=== PATIENT | male | born 1940 | race Caucasian/White ===

== ENCOUNTER 2017-03-26 18:43 | Observation (INO) ==
[2017-03-26 19:30] LABS: Basophils # 0.2 K/mcL (0.0-0.2); Basophils % 1.6 %; Eosinophils # 0.1 K/mcL (0.0-0.6); Eosinophils % 1.1 %; Hematocrit 49.7 % (37.5-50.1); Hemoglobin 16.4 g/dL (12.9-16.9); Immature Granulocytes % 2.7 % (0-4); Lymphocytes # 0.6 K/mcL (0.6-4.6); Mean Corpuscular Hemoglobin 30.4 pg (28.0-33.3); Mean Platelet Volume 9.4 fL (9.4-12.4); Monocytes # 0.3 K/mcL (0.0-1.3); Monocytes % 3.3 %; Neutrophils # 8.7 K/mcL (1.6-8.9); Platelet Count 172 K/mcL (140-400); Red Cell Distribution Width 14.6 % (11.5-14.5); Segmented Neutrophils % 85.3 %
--- NOTE | 2017-03-26 19:30 | Emergency Department Note ---
Disposition Clinical Impression: Tremors of nervous system, Transient neurologic deficit Altered mental status Qualifiers: Altered mental status type: disorientation Qualified Code(s): R41.0 - Disorientation, unspecified Disposition: Admitted As Inpatient Condition: Good Referrals: Unassigned,Provider [Non-Partnered Physician] - Forms: ED Satisfaction Letter Time of Disposition: 21:18 Altered Mental Status HPI - General Chief Complaint: ED Altered Mental Status Stated Complaint: Weakness ,AMS Time Seen by Provider: 03/26/17 18:45 Source: patient, EMS Mode of arrival: ambulatory Limitations: no limitations Nursing Notes Reviewed: Yes Vital Signs Reviewed: Yes - History of Present Illness HPI Narrative: Patient presents emergency room from home. EMS transportation completed. In transit they noted the patient was altered on arrival and shaking. They try to get an Accu-Chek and it read as air. They provided him with 2 A of glucose by mouth. Family denies any recent illnesses or injuries. Denies any other medical concerns. According to them he takes Cardizem, metoprolol, Synthroid. No other medications noted from the who is with them at time of arrival. Patient currently denying chest pain shortness of breath headache vision changes nausea vomiting or diarrhea. Denies fevers or chills. 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 Constitutional: Denies: fever, chills Cardiovascular: Denies: chest pain, palpitations, dyspnea on exertion, orthopnea Respiratory: Denies: cough, dyspnea Gastrointestinal: Denies: nausea, vomiting, diarrhea Genitourinary: Denies: urgency, dysuria, frequency Neurological: Denies: headache Past Medical History - Past Medical History Attestation: Yes The following information was validated with the patient. Source: patient Medical history: Reports: diabetes, hypertension, thyroid disease Psychiatric history: Reports: no psych history - Social History Smoking Status: Former smoker Alcohol use: Reports: none Drug use: Reports: none Physical Exam - General Limitations: no limitations General appearance: alert, in no apparent distress - Head Head exam: atraumatic, normocephalic, normal inspection - Eye Eye exam: Present: normal appearance, PERRL, EOMI. Absent: conjunctival injection, miosis, mydriasis - ENT ENT exam: normal exam, normal oropharynx, mucous membranes moist, TM's normal bilaterally - Neck Neck exam: Present: normal inspection, full ROM, trachea midline. Absent: tenderness, meningismus, lymphadenopathy - Chest Chest inspection: Present: normal inspection, symmetric chest wall rise. Absent : tenderness - Respiratory Respiratory exam: Present: normal lung sounds bilaterally. Absent: respiratory distress, wheezes, stridor, accessory muscle use - Cardiovascular Cardiovascular exam: Present: regular rate, normal rhythm, normal heart sounds - Abdominal Exam Abdominal exam: Present: soft, Non-Tender, normal bowel sounds. Absent: tenderness, distention, guarding, rebound, rigidity, Foss's sign, Rovsing's sign, tenderness at McBurney's Point - Extremities Exam Extremities exam: Present: normal inspection, full ROM, normal capillary refill. Absent: tenderness, pedal edema - Back Exam Back exam: Present: normal inspection - Neurological Exam Neurological exam: Present: alert, oriented X3, CN II-XII intact, normal gait - Skin Skin exam: Present: warm, dry, intact, normal color Course Course Narrative: Patient seen and examined arrival. See history of present illness. 76-year- old male presents emergency room from home today. Patient arrived by EMS today for evaluation of tremors and altered mental status at home per the . Patient has underlying tremor disorder. He is a diabetic with high blood pressure and thyroid related issues. Patient presents here today by EMS with stable vital signs. In-transit they attempted to get Accu-Chek read as air. They provided him with 2 A of oral dextrose at that time. On arrival here his Accu-Chek was 298. His vital signs are stable patient is afebrile. Patient is alert and oriented answering questions appropriately. He does not know why he is here. He is in no apparent distress. Lungs are clear heart is regular abdomen is soft nontender nondistended no guarding no rigidity. His lower extremities appear to be stable with mild pitting edema but otherwise no other acute pathology. Patient moves all 4 extremities with purpose has a tremor with intention. Otherwise no acute issues at this time. EKG reviewed and compared to previous EKG. No acute signs of ST segment elevation. Chronic morphology changes including a right bundle branch block. no acute signs of st segment elevation. vss. afebrile. Patient's family is at the bedside in the 70s are chronic issues. He has baseline tremors. Otherwise the daughter who is coming now discloses that he is a type II diabetic insulin-dependent. And has high blood pressure and thyroid related issues. The talar other medications that he takes. Patient is comfortable resting in the bed at this time mentating appropriately has intention tremor on exam. Disposition pending evaluation for possible diabetic-related issue dehydration cardiac related issue altered mental status and CT scan of the head ordered. Patient is stable we will continue to monitor treatment course is completed. Chest x-ray CT of the head EKG labs troponin blood cultures urinalysis beta hydroxybutyric acid and VBG all ordered at this time a fluid bolus. - Reevaluation(s) Reevaluation #1: Repeat evaluation the patient the bedside shows negative CT scan of the head chest x-ray is normal. EKG is stable. Labs are all within normal limits for this patient. Mildly elevated ketones in the blood but otherwise no acute signs of DKA. Glucose is elevated. Patient otherwise has no acute pathology. During the second evaluation at the bedside patient started to have some dysarthria and speech. Patient responded and resolved within 30 seconds of the initial episode. Family was concerned because he has never had any like this before. Based on story and symptoms patient is concerning for possible transient events going on here today as well as unknown underlying neurologic issues. Patient is stable at this point back to baseline answering questions appropriately alert and oriented 3. He will be admitted to the hospital at this time for definitive management of what appears to be unknown etiology of transient events along with progression of tremors Time: 21:16 Reevaluation #2: dR. Sánchez accepted the patient. Urinalysis is still pending secondary to patient not really was an appropriate sample this time. Otherwise patient has no other acute pathology. Glucose is elevated and he has a mild bump in his creatinine. Patient provided with fluids here. I reviewed the imaging labs and workup in detail with the hospitalist. No other recommendations from them at this time. Patient will be admitted for definitive evaluation of transient cerebral events that appeared to be waxing and waning here in the emergency room. Patient stable and in good medical condition at the time of admission patient will be observed here in the emergency room and to the admission process is completed Time: 21:27 Vital Signs Temperature 98.2 F 03/26/17 18:44 Pulse Rate 103 03/26/17 18:44 Respiratory Rate 20 03/26/17 18:44 Blood Pressure 140/94 03/26/17 18:44 O2 Sat by Pulse Oximetry 96 03/26/17 18:44 Temperature 98.2 F 03/26/17 18:44 Pulse Rate 103 03/26/17 18:44 Respiratory Rate 20 03/26/17 18:44 Blood Pressure 140/94 03/26/17 18:44 O2 Sat by Pulse Oximetry 96 03/26/17 18:44 Oxygen Delivery Oxygen Delivery Room Air Altered Mental Status - MDM Narrative Medical decision making narrative: n/v, transient events here neurologic evaluation - Medical Records Medical records reviewed: Yes I reviewed the patient's medical records. - Lab Data Lab results reviewed: Yes I reviewed the patient's lab results. Result diagrams: 03/26/17 19:15 03/26/17 19:15 Lab Results 03/26/17 03/26/17 03/26/17 Range/Units 19:15 19:15 19:15 WBC 10.2 (4.3-11.1) K/mcL RBC 5.40 (4.19-5.50) M/mcL Hgb 16.4 (12.9-16.9) g/dL Hct 49.7 (37.5-50.1) % MCV 92.0 (83.0-100.0) fL MCH 30.4 (28.0-33.3) pg MCHC 33.0 (31.6-35.5) g/dL RDW 14.6 H (11.5-14.5) % Plt Count 172 (140-400) K/mcL MPV 9.4 (9.4-12.4) fL Immature Gran % 2.7 (0-4) % Seg Neutrophils % 85.3 % Lymphocytes % 6.0 % Monocytes % 3.3 % Eosinophils % 1.1 % Basophils % 1.6 % Neutrophils # 8.7 (1.6-8.9) K/mcL Lymphocytes # 0.6 (0.6-4.6) K/mcL Monocytes # 0.3 (0.0-1.3) K/mcL Eosinophils # 0.1 (0.0-0.6) K/mcL Basophils # 0.2 (0.0-0.2) K/mcL PT 11.9 (9.4-12.1) Seconds INR 1.1 APTT 29.0 (26.0-36.0) Seconds VBG pH (7.32-7.42) pH Units VBG pCO2 (41-51) mmHg VBG pO2 (25-40) mmHg VBG HCO3 (21-27) mEq/L Sodium 132 L (136-145) mEq/L Potassium 4.7 H (3.5-4.5) mEq/L Chloride 98 (98-109) mEq/L Carbon Dioxide 21 (19-29) mEq/L BUN 26 (8-26) mg/dL Creatinine 1.53 H (0.72-1.25) mg/dL Est GFR ( Amer) 54 L (> 60) Est GFR (Non-Af Amer) 44 L (> 60) BUN/Creatinine Ratio 17 (6-26) Glucose 294 H (70-99) mg/dL Calculated Osmolality 290 (280-300) Calcium 9.3 (8.6-10.8) mg/dL Total Bilirubin 1.6 H (0.2-1.2) mg/dL Direct Bilirubin 0.4 (0.0-0.5) mg/dL Indirect Bilirubin 1.2 (0.0-1.2) mg/dL AST 28 (5-34) Units/L ALT 18 (0-55) Units/L Alkaline Phosphatase 108 (38-126) Units/L Troponin I (0-0.03) ng/mL Serum Total Protein 8.1 (6.0-8.3) g/dL Albumin 3.8 (3.5-5.0) g/dL Globulin 4.3 H (2.4-3.5) g/dL Albumin/Globulin Ratio 0.9 L (1.1-2.2) Beta-Hydroxybutyric Acd (0.02-0.27) mmol/L TSH 1.853 (0.350-4.840) mcIU/mL 03/26/17 03/26/17 03/26/17 Range/Units 19:15 20:23 20:23 WBC (4.3-11.1) K/mcL RBC (4.19-5.50) M/mcL Hgb (12.9-16.9) g/dL Hct (37.5-50.1) % MCV (83.0-100.0) fL MCH (28.0-33.3) pg MCHC (31.6-35.5) g/dL RDW (11.5-14.5) % Plt Count (140-400) K/mcL MPV (9.4-12.4) fL Immature Gran % (0-4) % Seg Neutrophils % % Lymphocytes % % Monocytes % % Eosinophils % % Basophils % % Neutrophils # (1.6-8.9) K/mcL Lymphocytes # (0.6-4.6) K/mcL Monocytes # (0.0-1.3) K/mcL Eosinophils # (0.0-0.6) K/mcL Basophils # (0.0-0.2) K/mcL PT (9.4-12.1) Seconds INR APTT (26.0-36.0) Seconds VBG pH 7.36 (7.32-7.42) pH Units VBG pCO2 46 (41-51) mmHg VBG pO2 37 (25-40) mmHg VBG HCO3 26.0 (21-27) mEq/L Sodium (136-145) mEq/L Potassium (3.5-4.5) mEq/L Chloride (98-109) mEq/L Carbon Dioxide (19-29) mEq/L BUN (8-26) mg/dL Creatinine (0.72-1.25) mg/dL Est GFR ( Amer) (> 60) Est GFR (Non-Af Amer) (> 60) BUN/Creatinine Ratio (6-26) Glucose (70-99) mg/dL Calculated Osmolality (280-300) Calcium (8.6-10.8) mg/dL Total Bilirubin (0.2-1.2) mg/dL Direct Bilirubin (0.0-0.5) mg/dL Indirect Bilirubin (0.0-1.2) mg/dL AST (5-34) Units/L ALT (0-55) Units/L Alkaline Phosphatase (38-126) Units/L Troponin I 0.00 (0-0.03) ng/mL Serum Total Protein (6.0-8.3) g/dL Albumin (3.5-5.0) g/dL Globulin (2.4-3.5) g/dL Albumin/Globulin Ratio (1.1-2.2) Beta-Hydroxybutyric Acd 0.33 H (0.02-0.27) mmol/L TSH (0.350-4.840) mcIU/mL - Radiology Data Radiology results reviewed: Yes I reviewed the patient's radiology results. CT of the head is negative for acute intracranial pathology. Chest x-ray stable in no acute signs of infection - EKG Data EKG attestation: Yes I reviewed and interpreted this EKG. EKG shows normal: sinus rhythm, axis, intervals, QRS complexes, ST-T waves Rate: normal Rhythm: NSR [place]/QRS: RBBB ST segment depression in: v3, v4 When compared to previous EKG there are: no significant changes Interpretation: no acute changes, unchanged when compared to prior tracing (date ) (08/16/2004) TPA Checklist - LKW: 3-4.5 hrs Add. Contraindications Patient/family understanding: The patient/family members have been counseled and understood the risk, benefit , and alternatives of treatment. Critical Care Time Critical Care Time: Yes Total Critical Care Time: 35 Attestation: separate of procedures and medical intervention.
[2017-03-26 19:38] LABS: INR 1.1; Prothrombin Time 11.9 Seconds (9.4-12.1)
[2017-03-26] MEDS ORDERED: Ondansetron 4 MG/2 ML VIAL IVP ONE (19:40)
[2017-03-26 19:48] LABS: Albumin 3.8 g/dL (3.5-5.0); Albumin/Globulin Ratio 0.9 (1.1-2.2); Bilirubin,Indirect 1.2 mg/dL (0.0-1.2); Bilirubin,Total 1.6 mg/dL (0.2-1.2); Calcium 9.3 mg/dL (8.6-10.8); Globulin 4.3 g/dL (2.4-3.5); Total Protein 8.1 g/dL (6.0-8.3)
[2017-03-26 19:49] LABS: Bilirubin,Direct 0.4 mg/dL (0.0-0.5); Potassium 4.7 mEq/L (3.5-4.5)
[2017-03-26] MEDS ORDERED: 0.9 % Sodium Chloride 1,000 ML IVC ONE ×2 (19:55→22:37)
[2017-03-26 20:09] LABS: Thyroid Stimulating Hormone 1.853 mcIU/mL (0.350-4.840)
[2017-03-26 20:56] LABS: VBG PH 7.36 pH Units (7.32-7.42)
--- NOTE | 2017-03-26 21:20 | Emergency Department Note ---
Disposition Clinical Impression: Altered mental status, Tremors of nervous system, Transient neurologic deficit Disposition: Admitted As Inpatient Condition: Good Referrals: Unassigned,Provider [Non-Partnered Physician] - Forms: ED Satisfaction Letter General Adult HPI - General Chief complaint: ED Altered Mental Status Stated complaint: Weakness ,AMS Time Seen by Provider: 03/26/17 18:45 Source: patient, EMS Mode of arrival: ambulatory Limitations: no limitations Nursing Notes Reviewed: Yes Vital Signs Reviewed: Yes - History of Present Illness Pain Scale: 0 - Related Data Allergies Allergy/AdvReac Type Severity Reaction Status Date / Time No Known Allergies Allergy Verified 03/26/17 18:54 Constitutional: Denies: fever, chills Cardiovascular: Denies: chest pain, palpitations, dyspnea on exertion, orthopnea Respiratory: Denies: cough, dyspnea Gastrointestinal: Denies: nausea, vomiting, diarrhea Genitourinary: Denies: urgency, dysuria, frequency Neurological: Denies: headache Past Medical History - Past Medical History Medical history: Reports: diabetes, hypertension, thyroid disease Psychiatric history: Reports: no psych history - Social History Smoking Status: Former smoker Alcohol use: Reports: none Drug use: Reports: none Physical Exam - General Limitations: no limitations General appearance: alert, in no apparent distress Course Vital Signs Temperature 98.2 F 03/26/17 18:44 Pulse Rate 103 03/26/17 18:44 Respiratory Rate 20 03/26/17 18:44 Blood Pressure 140/94 03/26/17 18:44 O2 Sat by Pulse Oximetry 96 03/26/17 18:44 Temperature 98.2 F 03/26/17 18:44 Pulse Rate 103 03/26/17 18:44 Respiratory Rate 20 03/26/17 18:44 Blood Pressure 140/94 03/26/17 18:44 O2 Sat by Pulse Oximetry 96 03/26/17 18:44 Oxygen Delivery Oxygen Delivery Room Air Medical Decision Making - Lab Data Result diagrams: 03/26/17 19:15 03/26/17 19:15 Lab Results 03/26/17 03/26/17 03/26/17 Range/Units 19:15 19:15 19:15 WBC 10.2 (4.3-11.1) K/mcL RBC 5.40 (4.19-5.50) M/mcL Hgb 16.4 (12.9-16.9) g/dL Hct 49.7 (37.5-50.1) % MCV 92.0 (83.0-100.0) fL MCH 30.4 (28.0-33.3) pg MCHC 33.0 (31.6-35.5) g/dL RDW 14.6 H (11.5-14.5) % Plt Count 172 (140-400) K/mcL MPV 9.4 (9.4-12.4) fL Immature Gran % 2.7 (0-4) % Seg Neutrophils % 85.3 % Lymphocytes % 6.0 % Monocytes % 3.3 % Eosinophils % 1.1 % Basophils % 1.6 % Neutrophils # 8.7 (1.6-8.9) K/mcL Lymphocytes # 0.6 (0.6-4.6) K/mcL Monocytes # 0.3 (0.0-1.3) K/mcL Eosinophils # 0.1 (0.0-0.6) K/mcL Basophils # 0.2 (0.0-0.2) K/mcL PT 11.9 (9.4-12.1) Seconds INR 1.1 APTT 29.0 (26.0-36.0) Seconds VBG pH (7.32-7.42) pH Units VBG pCO2 (41-51) mmHg VBG pO2 (25-40) mmHg VBG HCO3 (21-27) mEq/L Sodium 132 L (136-145) mEq/L Potassium 4.7 H (3.5-4.5) mEq/L Chloride 98 (98-109) mEq/L Carbon Dioxide 21 (19-29) mEq/L BUN 26 (8-26) mg/dL Creatinine 1.53 H (0.72-1.25) mg/dL Est GFR ( Amer) 54 L (> 60) Est GFR (Non-Af Amer) 44 L (> 60) BUN/Creatinine Ratio 17 (6-26) Glucose 294 H (70-99) mg/dL Calculated Osmolality 290 (280-300) Calcium 9.3 (8.6-10.8) mg/dL Total Bilirubin 1.6 H (0.2-1.2) mg/dL Direct Bilirubin 0.4 (0.0-0.5) mg/dL Indirect Bilirubin 1.2 (0.0-1.2) mg/dL AST 28 (5-34) Units/L ALT 18 (0-55) Units/L Alkaline Phosphatase 108 (38-126) Units/L Troponin I (0-0.03) ng/mL Serum Total Protein 8.1 (6.0-8.3) g/dL Albumin 3.8 (3.5-5.0) g/dL Globulin 4.3 H (2.4-3.5) g/dL Albumin/Globulin Ratio 0.9 L (1.1-2.2) Beta-Hydroxybutyric Acd (0.02-0.27) mmol/L TSH 1.853 (0.350-4.840) mcIU/mL 03/26/17 03/26/17 03/26/17 Range/Units 19:15 20:23 20:23 WBC (4.3-11.1) K/mcL RBC (4.19-5.50) M/mcL Hgb (12.9-16.9) g/dL Hct (37.5-50.1) % MCV (83.0-100.0) fL MCH (28.0-33.3) pg MCHC (31.6-35.5) g/dL RDW (11.5-14.5) % Plt Count (140-400) K/mcL MPV (9.4-12.4) fL Immature Gran % (0-4) % Seg Neutrophils % % Lymphocytes % % Monocytes % % Eosinophils % % Basophils % % Neutrophils # (1.6-8.9) K/mcL Lymphocytes # (0.6-4.6) K/mcL Monocytes # (0.0-1.3) K/mcL Eosinophils # (0.0-0.6) K/mcL Basophils # (0.0-0.2) K/mcL PT (9.4-12.1) Seconds INR APTT (26.0-36.0) Seconds VBG pH 7.36 (7.32-7.42) pH Units VBG pCO2 46 (41-51) mmHg VBG pO2 37 (25-40) mmHg VBG HCO3 26.0 (21-27) mEq/L Sodium (136-145) mEq/L Potassium (3.5-4.5) mEq/L Chloride (98-109) mEq/L Carbon Dioxide (19-29) mEq/L BUN (8-26) mg/dL Creatinine (0.72-1.25) mg/dL Est GFR ( Amer) (> 60) Est GFR (Non-Af Amer) (> 60) BUN/Creatinine Ratio (6-26) Glucose (70-99) mg/dL Calculated Osmolality (280-300) Calcium (8.6-10.8) mg/dL Total Bilirubin (0.2-1.2) mg/dL Direct Bilirubin (0.0-0.5) mg/dL Indirect Bilirubin (0.0-1.2) mg/dL AST (5-34) Units/L ALT (0-55) Units/L Alkaline Phosphatase (38-126) Units/L Troponin I 0.00 (0-0.03) ng/mL Serum Total Protein (6.0-8.3) g/dL Albumin (3.5-5.0) g/dL Globulin (2.4-3.5) g/dL Albumin/Globulin Ratio (1.1-2.2) Beta-Hydroxybutyric Acd 0.33 H (0.02-0.27) mmol/L TSH (0.350-4.840) mcIU/mL Attestation Statement - Attestation Attestation: I examined this patient and my medical decision-making was reviewed with the WOOD TANK BUILDER/PA/Advanced Practice Nurse/Resident Physician. I agree with the documented findings, disposition and treatment plan as described except to the extent set forth below. Patient is a 76-year-old white male brought in by EMS today for reports of confusion and generalized weakness. Patient is completely by his who is a poor historian and also hard of hearing with difficulty clarifying events surrounding patient's arrival here in the ED. Bleeding that she consistently reports is that he had a 1 large episode of loose watery diarrhea prior to arrival and that her was acting confused. On arrival he was awake alert and oriented with a GCS of 15 on arrival with clear speech and no appreciable focal neurologic deficits on exam. Patient had no complaints at the time of arrival, was able to answer questions appropriately was alert and orientedx 4. Patient denies any headaches, no visual changes, no chest pain or pressure, no shortness of breath, no abdominal pain or nausea, no flank pain denies any focal weakness but states just overall complaints of malaise and "just not feeling good". Patient smiling but in no acute distress at bedside. I agree with physical exam as documented. EKG shows sinus tachycardia with a right bundle branch block changes compared to prior EKG. Patient had labs obtained as well as urinalysis and portal chest x-ray and CT head obtained. CT brain and chest x-ray were both within normal limits with no acute findings. Patient with mild hyperglycemia although per EMS they gave 2 oral glucose lodes prior to arrival as they could not obtain a blood sugar and described the patient is confused and altered prior to the oral glucose lodes with improvement on arrival to the ED. Patient had one episode of nausea vomiting while in the ED waiting for labs. Following episode patient denied any ongoing nausea, no abdominal pain. On my assessment of the patient patient was awake alert and oriented, seemed appropriate with clear speech and no focal deficits, then during a conversation with he and his family he went to answer question and speech was unintelligible. Patient denied any confusion at that time, asymptomatic, and after a few minutes the symptoms completely resolved he was asked answering questions appropriately with clear speech. Daughter who is at bedside was not at home prior to his arrival to the ED physician does not know if this is what was happening and his labels confused she denies appreciating any slurred are difficult to understand speech while he was at home just states he was not acting himself. At this point in time and admit the patient for further neurologic evaluation. Patient does not meet criteria for TPA as he was asymptomatic on arrival, and we had one transient episode we have witnessed clinically here in the ED. Patient and family agree with admission for further evaluation.
[2017-03-26] MEDS ORDERED: 0.9 % Sodium Chloride 1,000 ML ONE (22:38)
[2017-03-26] MEDS ORDERED: Naloxone 0.4 MG/ML INJ IVP PRN (23:45)
[2017-03-26] MEDS ORDERED: Dextrose Gel 15 GM PO PRN ×2 (23:52)
[2017-03-26] MEDS ORDERED: D5% in Water 1,000 ML IVC PRN (23:52)
[2017-03-26] MEDS ORDERED: *HR* Dextrose 50 % in Water (Syg) 50 ML SYRINGE IVP PRN (23:52)
--- NOTE | 2017-03-27 00:09 | Internal Med History&Physical ---
Date of Encounter: 03/26/17 Time of Encounter: 21:00 Assessment and Plan (1) Altered mental status Current visit: Yes Status: Acute Patient has episodes of confusion with slurred speech. Etiology is undetermined. CT head is negative in emergency room. - We will place patient on continuous cardiac monitoring to rule out arrhythmia. - Echo and duplex carotid placed. - It's also possible atypical seizure. Will check EEG in a.m. - Neurology consult. Qualifiers: Altered mental status type: disorientation Qualified Code(s): R41.0 - Disorientation, unspecified (2) Diabetes Current visit: Yes Status: Acute Will place patient on sliding scale insulin. Closely monitor glucose level. Avoid hypoglycemia. Qualifiers: Diabetes mellitus type: type 2 Diabetes mellitus complication status: with kidney complications Diabetes mellitus complication detail: with chronic kidney disease Diabetes mellitus termination clerk insulin use: with mcfp use Chronic kidney disease stage: stage 3 (moderate) Qualified Code(s): E11.22 - Type 2 diabetes mellitus with diabetic chronic kidney disease; N18.3 - Chronic kidney disease, stage 3 (moderate); Z79.4 - residential (current) use of insulin (3) Hypothyroidism Current visit: Yes Status: Acute Continue Synthroid Qualifiers: Hypothyroidism type: unspecified Qualified Code(s): E03.9 - Hypothyroidism , unspecified (4) History of CVA (cerebrovascular accident) Current visit: Yes Status: Acute Will add aspirin for secondary prevention. (5) DVT prophylaxis Current visit: Yes Status: Acute Heparin subcutaneously Internal Medicine - H&P: HPI Chief complaint: Altered mental status Admitted From: Home Plans for Post Hospital Care: Home History of present illness: Mr. Haynes is a 76 year old male with a history of diabetes, hypertension, history of CVA, sent to emergency room by EMS for confusion and hand shaking. Patient said he had hand shaking and cannot speak clearly this afternoon about 4pm. EMS was called. Patient was suspected hypoglycemia, but did not get glucose level at that time. He was given glucose treatment by EMS and symptoms has improved. When he gets to ER, he is mentally clear and answer question properly. His glucose level is not low when he gets to ER. However, patient had another episode of confusion and slurred speech in the emergency room, lasted several seconds to minutes, and improved spontaneously. This cannot attributed to hypoglycemia because his glucose level is not low at that time. Patient had no tongue biting, and no fecal or urinary incontinence. When I saw patient, Patient said he cannot remember the confusion episode in the emergency room. Patient was admitted for further management. I discussed the CODE STATUS with patient. He is full code. Past Med Surg Social Fam HX - Past Medical History Medical history: diabetes, hypertension, thyroid disease Psychiatric history: no psych history - Social History Smoking Status: Former smoker Alcohol use: none Drug use: none - Family History Mother Living Status: Age at : 82 Cause of : tia Hx Family Cardiac Disorders: Yes (tia) Hx Family Endocrine Disorder: Yes (dm) Father Living Status: Age at : 66 Cause of : sx complications Hx Family Cancer: Yes (brain) Hx Family Endocrine Disorder: Yes (dm) Internal Medicine - H&P: Meds Acetaminophen [Tylenol] 500 mg PO Q6HR PRN 03/26/17 [History] Colon Health 1 tab PO DAILY 03/26/17 [History] Diltiazem [Cardizem] 30 mg PO QID 03/26/17 [History] Ibuprofen [Advil] 200 mg PO Q6H PRN 03/26/17 [History] Insulin DETEMIR [Levemir Flextouch] 50 - 60 units SQ BID 03/26/17 [History] Insulin LISPRO [Humalog Kwikpen U-100] 0 unit SQ TID PRN 03/26/17 [History] Levothyroxine Sodium 75 mcg PO 0630 03/26/17 [History] Metoprolol [Lopressor] 25 mg PO BID 03/26/17 [History] Omeprazole [PriLOSEC] 20 mg PO DAILY 03/26/17 [History] Promethazine [Phenergan] 25 mg PO Q6HR PRN 03/26/17 [History] Allergies No Known Allergies Allergy (Verified 03/26/17 21:42) All Systems PM: A 10-system review of systems was performed and is negative for pertinent findings except as documented above in the HPI. - Constitutional Vitals: Temp Pulse Resp BP Pulse Ox 98.2 F 103 20 140/94 96 03/26/17 18:44 03/26/17 18:44 03/26/17 18:44 03/26/17 18:44 03/26/17 18:44 General appearance: Present: A&O X 3, pleasant, no acute distress, answers questions appropriately - Head Head exam: Present: atraumatic, normocephalic - Eye Eye exam: Present: PERRL, conjuntiva pink, sclera anicteric Pupils: Present: PERRL - Neck Neck exam general surgery: Present: supple, trachea midline. Absent: lymphadenopathy - Respiratory Respiratory exam: Present: CTAB. Absent: accessory muscle use, rales, rhonchi, wheezes - Cardiovascular Cardiovascular exam: Present: RRR, +S1, +S2. Absent: diastolic murmur, gallop, rubs, systolic murmur - GI/Abdominal GI/Abdominal exam: Present: normal bowel sounds, soft, no peritoneal signs. Absent: distended, tenderness - Extremities Exam Extremities exam: Present: warm, radial pulses palpable and symetrical. Absent : calf tenderness, cyanotic, pedal edema Additional comments: Right lower leg skin warmth and redness, no edema - Neurological Exam Neurological exam: Present: CN II-XII intact, oriented X3, no focal deficits. Absent: pronater drift, facial droop, speech deficit - Skin Skin exam: Present: dry, intact Internal Med - H&P Results - Labs CBC & Chem 7: 03/26/17 19:15 03/26/17 19:15
[2017-03-27 00:21] LABS: Bilirubin,Urine Negative (Negative); Blood,Urine Negative (Negative); Clarity,Urine Clear (Clear); Color,Urine Dark Yellow (Yellow); Glucose,Urine (UA) >=1000 mg/dL (Normal); Ketones,Urine Negative (Negative); Leukocyte Esterase,Urine Negative (Negative); Nitrite,Urine Negative (Negative); PH,Urine 5.5 pH Units (5.0-8.0); Protein,Urine 100 mg/dL (Neg-Trace); Specific Gravity,Urine 1.028 (1.010-1.025); Urobilinogen,Urine Normal (Normal)
[2017-03-27 00:26] LABS: Bacteria,Urine None Seen per hpf (None-Few); Hyaline Casts,Urine None Seen per lpf (None-Few); Squamous Epithelial Cell,Urine Few per lpf (None-Few); WBC,Urine 0-3 per hpf (0-3)
[2017-03-27 00:27] LABS: Amphetamine Screen,Urine Negative ng/mL (Cutoff=1000); Barbiturate Screen,Urine Negative ng/mL (Cutoff=200); Benzodiazepines Screen,Urine Negative ng/mL (Cutoff=200); Cannabinoid Screen,Urine Negative ng/mL (Cutoff = 50); Cocaine Screen,Urine Negative ng/mL (Cutoff= 300); Opiate Screen,Urine Negative ng/mL (Cutoff=300); Phencyclidine Screen,Urine Negative ng/mL (Cutoff=25)
[2017-03-27 06:07] LABS: Basophils # 0.1 K/mcL (0.0-0.2); Basophils % 0.7 %; Eosinophils % 0.2 %; Hematocrit 42.6 % (37.5-50.1); Immature Granulocytes % 2.2 % (0-4); Lymphocytes # 0.9 K/mcL (0.6-4.6); Lymphocytes % 6.9 %; Mean Corpuscular HGB Conc 33.3 g/dL (31.6-35.5); Mean Corpuscular Hemoglobin 30.5 pg (28.0-33.3); Mean Corpuscular Volume 91.6 fL (83.0-100.0); Mean Platelet Volume 9.7 fL (9.4-12.4); Monocytes # 0.7 K/mcL (0.0-1.3); Monocytes % 5.9 %; Neutrophils # 10.5 K/mcL (1.6-8.9); Nucleated Red Blood Cells 0.2 /100 WBC (0); Platelet Count 158 K/mcL (140-400); Red Blood Count 4.65 M/mcL (4.19-5.50); Red Cell Distribution Width 14.6 % (11.5-14.5); Segmented Neutrophils % 84.1 %
[2017-03-27 06:15] LABS: Hemoglobin 14.2 g/dL (12.9-16.9)
[2017-03-27 06:32] LABS: Albumin/Globulin Ratio 0.9 (1.1-2.2); Calcium 8.3 mg/dL (8.6-10.8); Globulin 3.2 g/dL (2.4-3.5); Potassium 4.7 mEq/L (3.5-4.5)
[2017-03-27] MEDS: *HR* Heparin 5,000 UNIT/ML VIAL SQ SCH ×2 (06:38→17:15)
[2017-03-27 06:39] LABS: Bilirubin,Total 2.7 mg/dL (0.2-1.2)
[2017-03-27] MEDS: Saline Nasal Spray 44 ML BOTTLE NS PRN ×2 (06:39→10:23)
[2017-03-27 06:40] LABS: Total Protein 6.2 g/dL (6.0-8.3)
[2017-03-27 08:17] LABS: Acinetobacter baumannii by PCR Not Detected (Not Detect); Enterococcus by PCR Not Detected (Not Detect); Escherichia coli by PCR Not Detected (Not Detect); Klebsiella oxytoca by PCR Not Detected (Not Detect); Klebsiella pneumoniae by PCR Not Detected (Not Detect); Staphylococcus aureus by PCR Not Detected (Not Detect); Streptococcus agalactiae(B)PCR ***DETECTED*** (Not Detect); Streptococcus by PCR ***DETECTED*** (Not Detect); Streptococcus pneumoniae PCR Not Detected (Not Detect); Streptococcus pyogenes (A) PCR Not Detected (Not Detect)
[2017-03-27 08:18] LABS: Candida albicans by PCR Not Detected (Not Detect); Candida glabrata by PCR Not Detected (Not Detect); Candida krusei by PCR Not Detected (Not Detect); Candida parapsilosis by PCR Not Detected (Not Detect); Candida tropicalis by PCR Not Detected (Not Detect); Pseudomonas aeruginosa by PCR Not Detected (Not Detect); Serratia marcescens by PCR Not Detected (Not Detect)
[2017-03-27] MEDS: Aspirin Enteric Coated 81 MG Tablet PO SCH (08:29)
[2017-03-27] MEDS: Insulin LISPRO 300 UNITS/3 ML VIAL SQ SCH ×4 (08:30→21:38)
[2017-03-27] MEDS ORDERED: Doxycycline 100 MG CAPSULE PO SCH (09:00)
--- NOTE | 2017-03-27 09:45 | Neurology - Consult Note ---
Date of Encounter: 03/27/17 Time of Encounter: 09:43 History of Present Illness Chief complaint: Confusion HPI: History of Present Illness: Mr. Haynes is a 76 year old man with prior history of diabetes, hypertension, prior history of left frontal stroke, who was sent to the emergency room yesterday for Confusion and hand shaking. Apparently the patient had hand shaking (unclear which side) and difficulty speaking yesterday at about 4 PM and EMS was called at the time. The patient was suspected of hypoglycemia and was given glucose however a glucose measurement was not done at that time. The episode of confusion resolved and he was brought to the ER. When he came to the ER his glucose was normal; however he was now able to answer questions appropriately. His glucose level was tested to be normal in the ER. However he also had another episode of confusion and slurred speech the emergency room that lasted far from several seconds to minutes but also as improved spontaneously at this time. As mentioned above, his glucose was normal. No tongue biting, no incontinence episodes were noted. He does not have any memory/recollection of the event. He was admitted for evaluation and management. He has had prior strokes but it is unclear whether he was on aspirin. He describes no shortness of breath, no difficulty eating or swallowing, no difficulty with thinking. He is capable of answering questions correctly at the time of my seeing him this morning. He states that his family will be coming later today and that he lives at home with his . Past medical history diabetes hypertension thyroid disease prior history of stroke Medications at home included acetaminophen, Colon Health, diltiazem, ibuprofen, insulin, levothyroxine, metoprolol, omeprazole and promethazine. 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 Review of systems at 10-point reviews of system is essentially negative except for what is mentioned in HPI. In addition no fevers, no chills, no shortness of breath Examination Please see details of vitals documented below. General appearance: awake alert and oriented times 4, seems to be in no acute distress, he answers questions appropriately. HEENT exam is unremarkable except for a mild left facial droop; no dysarthria. His eye exam is within normal limits. His neck exam is within normal limits. CV: His heart is with regular rate and rhythm Chest: is clear to auscultation bilaterally Abdomen: is soft, benign, obese, otherwise nontender. Extremities: are with patchy areas of ecchymotic, erythematous in nature. His neurologic exam: His cognition is within normal limits. He is capable of remembering 3 words and recalling them. Cranial nerves exam is within normal limits except for the mild facial droop noted as above. Motor exam is within normal limits for his condition and age. No leg Drift. No Pronator Drift. Cerebellar examination is within normal limits; no speech deficit noted; no dysarthria noted. Sensory exam with distal sensory loss both in upper and lower extremities diffuse hyporeflexia Toes are mute bilaterally. Imaging studies CT Head: Diffuse global atrophy noted. Prior left frontal stroke noted. Questionable left MCA hyper density. No other acute findings of bleed or stroke. Assessment and Plan: 76-year-old man with prior history of left frontal stroke (with residual encephalomalacia), prior history of diabetes, former smoker, with few episodes of confusion in combination with hand shaking, highly suspicious for seizures/ seizuriform activity. However TIA/stroke needs to be excluded. Will get MRI of the brain without contrast to look at this. If there is a stroke, we will place him on aspirin and continue the aspirin and do the rest of the stroke workup including lipids and cardiac echo. If no stroke is identified will start him on a the Dilantin or Keppra depending on his rest of the medical conditions. Agree with the treatment of cellulitis in conjunction with the mildly elevated white content for infection treatment. Will follow the MRI results. Please call if there are any further questions. Past Med Surg Social Fam HX - Past Medical History Medical history: diabetes, hypertension, thyroid disease Psychiatric history: no psych history - Social History Smoking Status: Former smoker Alcohol use: none Drug use: none - Family History Mother Living Status: Age at : 82 Cause of : tia Hx Family Cardiac Disorders: Yes (tia) Hx Family Endocrine Disorder: Yes (dm) Father Living Status: Age at : 66 Cause of : sx complications Hx Family Cancer: Yes (brain) Hx Family Endocrine Disorder: Yes (dm) Medications and Allergies Acetaminophen [Tylenol] 500 mg PO Q6HR PRN 03/26/17 [History] Colon Health 1 tab PO DAILY 03/26/17 [History] Diltiazem [Cardizem] 30 mg PO QID 03/26/17 [History] Ibuprofen [Advil] 200 mg PO Q6H PRN 03/26/17 [History] Insulin DETEMIR [Levemir Flextouch] 50 - 60 units SQ BID 03/26/17 [History] Insulin LISPRO [Humalog Kwikpen U-100] 0 unit SQ TID PRN 03/26/17 [History] Levothyroxine Sodium 75 mcg PO 0630 03/26/17 [History] Metoprolol [Lopressor] 25 mg PO BID 03/26/17 [History] Omeprazole [PriLOSEC] 20 mg PO DAILY 03/26/17 [History] Promethazine [Phenergan] 25 mg PO Q6HR PRN 03/26/17 [History] Allergies No Known Allergies Allergy (Verified 03/26/17 21:42) All Systems: A 10-system review of systems was performed and is negative for pertinent findings except as documented above in the HPI. Physical Examination - Vital Signs Vital Signs: Initial Vital Signs Temp Pulse Resp BP Pulse Ox 98.2 F 103 20 140/94 96 03/26/17 18:44 03/26/17 18:44 03/26/17 18:44 03/26/17 18:44 03/26/17 18:44 Results - Laboratory Findings CBC and BMP: 03/27/17 05:53 03/27/17 05:53 Abnormal lab findings: Abnormal lab results WBC 12.6 K/mcL (4.3-11.1) H 03/27/17 05:53 RDW 14.6 % (11.5-14.5) H 03/27/17 05:53 Neutrophils # 10.5 K/mcL (1.6-8.9) H 03/27/17 05:53 Nucleated RBCs/100 WBC 0.2 /100 WBC (0) H 03/27/17 05:53 Sodium 134 mEq/L (136-145) L 03/27/17 05:53 Potassium 4.7 mEq/L (3.5-4.5) H 03/27/17 05:53 Creatinine 1.44 mg/dL (0.72-1.25) H 03/27/17 05:53 Est GFR ( Amer) 58 (> 60) L 03/27/17 05:53 Est GFR (Non-Af Amer) 48 (> 60) L 03/27/17 05:53 Glucose 341 mg/dL (70-99) H 03/27/17 05:53 POC Glucose 347 (58-89) H 03/27/17 08:00 Calcium 8.3 mg/dL (8.6-10.8) L 03/27/17 05:53 Total Bilirubin 2.7 mg/dL (0.2-1.2) H D 03/27/17 05:53 Albumin 3.0 g/dL (3.5-5.0) L D 03/27/17 05:53 Albumin/Globulin Ratio 0.9 (1.1-2.2) L 03/27/17 05:53 HDL Cholesterol 25 mg/dL (40-59) L 03/27/17 05:53 Cholesterol/HDL Ratio 5.0 (0-4.9) H 03/27/17 05:53 Beta-Hydroxybutyric Acd 0.33 mmol/L (0.02-0.27) H 03/26/17 20:23 Ur Specific [place] 1.028 (1.010-1.025) H 03/27/17 00:10 Urine Protein 100 mg/dL (Neg-Trace) H 03/27/17 00:10 Urine Glucose (UA) >=1000 mg/dL (Normal) H 03/27/17 00:10 Urine Microscopic RBC 3-5 per hpf (0-3) H 03/27/17 00:10 Streptococcus sp PCR DETECTED (Not Detect) A 03/26/17 19:29 Group B Strep (PCR) DETECTED (Not Detect) A 03/26/17 19:29 Consult Discharge Plan - Plan Referrals: Gregory Francois DO [Primary Care Provider] -
[2017-03-27] MEDS: ceFAZolin 1,000 MG in D5% in Water (Mini-Bag+) 100 ML IVPB SCH ×3 (10:22→23:48)
--- NOTE | 2017-03-27 17:08 | Event Note ---
Date of Encounter: 03/27/17 Time of Encounter: 14:00 Patient seen and examined. On examination, patient sitting upright in bed watching television and conversing with his . Patient states that he feels better but states that he has his typical "pain all over." He does endorse pain to his right lower extremity. He states he is eating well and denies any nausea or vomiting. He denies shortness of breath. His confusion and expressive aphasia have essentially resolved. At times, he has trouble finding words but this is consistent with his expressive aphasia resultant from a prior CVA according to his . Shaking episode with slurred speech could be more consistent with his bacteremia then with a possible seizure or episode of hypoglycemia. Chest x-ray negative. Head CT negative. Urinalysis negative for infection and revealing proteinuria and glucosuria. Tox screen negative. Echocardiogram pending. Brain MRI negative for acute processes. Head and neck MRA also unremarkable. Cannot do an EEG on the weekends, he can follow up outpatient. Neurology on board, plan is to likely add seizure medications to the patient's regimen. Regarding his infection, he has right lower extremity cellulitis. Mild erythema without edema. Red streaking extends from the base of his foot up his garcia. He had a diabetic foot wound debrided at his [place] addresser's [address] Gill. Blood cultures positive for group B strep. Doxycycline stopped and patient started on Cefazolin for optimal coverage of both cellulitis and bacteremia. He is not septic. Blood pressure and heart rate are stable. Mild leukocytosis noted, will trend. Afebrile;Tmax thus far 99.9F. His renal functioning is stable. Patient stating he was upset that his foot became infected after his addresser had "cleaned it out." Importance of better control over his glucoses was covered with the patient. Most recent A1c was from October 2016 and was 9.5%. Patient unsure what his glucoses usually run but states they are usually around 200 although he states he does not check his glucoses frequently. We will obtain another A1c with a.m. labs-glucose is poorly controlled, will increase sliding scale and restart his BID basal dosing at a lower dose as the patient is not able to succinctly identify his regular doses. Will repeat blood cultures tomorrow. We will continue to address his wound, if worsened, will consider podiatry consult. Patient stating he would be okay with seeing [facility]'s podiatry team. No indication for consult at this time. ITS Impressions Chest X-Ray 03/26/17 18:54 IMPRESSION: No acute cardiopulmonary disease is appreciated. D/ / Martin Bo MD / Martin Bo MD Interpreting Provider: Martin Bo MD Head CT 03/26/17 19:26 IMPRESSION: No acute intracranial abnormality. If acute cerebral infarct is a clinical concern, an MRI is a more sensitive study. D/ / Hoda Morrison Cha, MD / Hoda Morrison Cha, MD Interpreting Provider: Hoda Morrison Cha, MD Brain MRI 03/27/17 09:55 IMPRESSION: 1. No acute infarct or acute intracranial process identified. 2. Diffuse cerebral volume loss and severe chronic small vessel ischemic changes. D/ / 03/27/2017 13:27:19 Tommy Thompson MD / james Interpreting Provider: Tommy Thompson MD Head MRA 03/27/17 09:55 IMPRESSION: 1. 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 2. Otherwise, unremarkable MRA of the neck. 3. Unremarkable MRA of the head. D/ / Petey Murillo MD / Petey Murillo MD Interpreting Provider: Petey Murillo MD Neck MRA 03/27/17 10:05
[2017-03-27] MEDS: Acetaminophen 325 MG TABLET PO PRN (17:36)
--- NOTE | 2017-03-27 18:20 | ECHO - Doppler Report ---
Echocardiogram Name: Gabriella Haynes Date of Study: 03/27/2017 Date: 1940 Ht: 67.0 in Medical Record#: [id number] Age: 76 Wt: 198.0 lb Gender: Male BSA: 2.01 Order #: [id number] Location: [facility] Room #: 3B41 Reading Physician: Nikki Montejo DO Highballer: Danette Centeno RDCS Ordering Physician: Le Hou MD Primary Physician: Gregory Francois DO Indications: Confusion Impressions: Technically challenging study with suboptimal windows. Grossly normal LVEF. Not all myocardial segments were well visualized. RV is not well evaluated. No significant valvular dysfunction. No pulmonary hypertension. Findings: Study Quality * Technically sub-optimal due to clinical status. ECG Findings * Sinus tachycardia. Aorta * Normally sized aortic root. * Ascending aorta is not well visualized. Left Ventricle * LVEF 50%. * Mild left ventricular diastolic dysfunction. * Unable to evaluate segmental wall motion due to technical quality. Left Atrium * Normal left atrial size. Mitral Valve * Normal mitral valve structure. * No mitral stenosis. * No mitral regurgitation. Aortic Valve * No aortic regurgitation. * Aortic valve not well visualized. * No aortic stenosis. Tricuspid Valve * Tricuspid valve not well visualized. * No tricuspid regurgitation. * Estimated RA pressure is 3 mmHg. * Estimated RVSP is 21 mmHg. * No pulmonary hypertension. Pulmonic Valve * Pulmonic valve is not well visualized. * No pulmonic stenosis. * Trace pulmonic regurgitation. Pulmonary Artery * Pulmonary artery not well visualized. Right Atrium * Right atrium is not well visualized. Right Ventricle * Not well evaluated. Pericardium * There is no pericardial effusion present. Interatrial Septum * No evidence of PFO by color Doppler. IVC * Normal IVC dimensions and inspiratory collapse. History Hypertension Diabetes Hypercholesteremia Family History of CAD Measurements: BP: 130/ 66 2D Normal Values RVIDd: 3.30 cm <2.7 cm IVSd: 1.20 cm 0.6 - 1.0 cm LVIDd: 4.10 cm 3.7 - 5.6 cm LVPWd: 1.20 cm 0.6 - 1.1 cm LVIDs: 2.60 cm 1.5 - 3.6 cm AO: 3.30 cm < 4.0 cm LA: 3.10 cm 2.0 - 4.0cm %FS: 36.60 cm >25 % LVOT Diam: 2.00 cm LA volume: 30 Mitral Valve Peak E:.44 m/sec Peak A:.81 m/sec E/A Ratio:0.5 Peak E' Lat David:9.85 cm/s Peak E' Med David:5.26 cm/s E/E' Lat Ratio:4.5 E/E' Med Ratio:8.4 Tricuspid Valve TV Regurg Peak Grad: 18.00mmHg TV Regurg Peak David: 2.13m/sec Updated by Nikki Montejo on 03/27/2017 6:15:53 PM electronically signed on 03/27/2017 6:17:11 PM with status of Final Wall Motion [place]: 1=Normal, 2=Hypokinesis, 3=Akinesis, 4=Dyskinesis, 5=Aneurysmal, 6=Hyperkinetic, X=Not Visualized (Blank)=Missing
[2017-03-27] MEDS ORDERED: Insulin LISPRO 300 UNITS/3 ML VIAL SQ SCH (21:00)
[2017-03-27] MEDS: Insulin DETEMIR 100 UNIT/ML X5UNITS SQ SCH (21:37)
[2017-03-28 04:02] LABS: Basophils # 0.1 K/mcL (0.0-0.2); Basophils % 1.4 %; Eosinophils # 0.1 K/mcL (0.0-0.6); Eosinophils % 1.5 %; Hematocrit 42.6 % (37.5-50.1); Hemoglobin 14.2 g/dL (12.9-16.9); Immature Granulocytes % 2.9 % (0-4); Lymphocytes # 1.4 K/mcL (0.6-4.6); Lymphocytes % 19.5 %; Mean Corpuscular HGB Conc 33.3 g/dL (31.6-35.5); Mean Corpuscular Hemoglobin 30.7 pg (28.0-33.3); Mean Platelet Volume 9.5 fL (9.4-12.4); Monocytes # 0.6 K/mcL (0.0-1.3); Monocytes % 7.7 %; Neutrophils # 4.8 K/mcL (1.6-8.9); Platelet Count 131 K/mcL (140-400); Red Blood Count 4.63 M/mcL (4.19-5.50); Red Cell Distribution Width 14.5 % (11.5-14.5)
[2017-03-28 04:14] LABS: Calcium 8.8 mg/dL (8.6-10.8); Hemoglobin A1C 9.4 %; Potassium 4.1 mEq/L (3.5-4.5)
[2017-03-28] MEDS: *HR* Heparin 5,000 UNIT/ML VIAL SQ SCH ×2 (05:54→17:24)
[2017-03-28] MEDS: Aspirin Enteric Coated 81 MG Tablet PO SCH (08:28)
[2017-03-28] MEDS: Insulin LISPRO 300 UNITS/3 ML VIAL SQ SCH ×4 (08:29→20:17)
[2017-03-28] MEDS: ceFAZolin 1,000 MG in D5% in Water (Mini-Bag+) 100 ML IVPB SCH ×3 (08:30→23:41)
[2017-03-28] MEDS: Insulin DETEMIR 100 UNIT/ML X5UNITS SQ SCH ×2 (08:35→20:14)
--- NOTE | 2017-03-28 10:51 | Neurology Progress Note ---
Date of Encounter: 03/28/17 Time of Encounter: 10:51 Assessment and Plan (1) Transient neurologic deficit Current Visit: Yes Status: Acute Likely TIA. Less suspicion for seizure. Normal MRI brain. Narrow right vertebral artery. Possible TIA. Cholesterol - 126, LDL 72. Patient needs to be on ASA 81 and statin (lipitor 10). EEG can be performed outpatient. Follow-up with outpatient Neurology (Dr. Serrano/Cindy). (2) Tremors of nervous system Current Visit: Yes Status: Acute Likely TIA, and less likely seizures. Outpatient EEG for completeness. Follow-up outpatient Neurology with Dr. Landaverde. Subjective Principal diagnosis: TIA Interval history: Doing well today. States that his pain in the feet is going down. He is on antibiotics for infections in the blood. He did not have any episodes of confusion or hand shaking. MRI brain was normal. MRA showed mild stenosis on Right Vertebral artery. He is walking with assistance to the bathroom. No other complaints. Objective - Constitutional Vitals: Temp Pulse Resp BP Pulse Ox 97.8 F 83 16 147/79 98 03/28/17 08:03 03/28/17 08:03 03/28/17 08:03 03/28/17 08:03 03/28/17 08:03 General appearance: Present: A&O X 3, obese, answers questions appropriately - Head Head exam: Present: atraumatic, normocephalic - Eye Eye exam: Present: PERRL, conjuntiva pink, sclera anicteric Pupils: Present: PERRL - Extremities Exam Extremities exam: Present: warm, radial pulses palpable and symetrical. Absent : calf tenderness, cyanotic, pedal edema - Neurological Exam Sensorimotor examination: Present: other (distal sensory loss) Sensation intact: Present: other (decreased distally) Reflex and gait examination: other (diffuse hyporeflexia and ankle areflexia) Mental Status Examination: Present: awake, alert, oriented to person, oriented to place, oriented to time, follows commands appropriately, answers questions appropriately, no agnosia, no aphasia, no aproxia, lucid Cranial nerve examination: Present: PERRL, EOMI, visual alberto intact, corneal reflexes brisk symmetrically, sensory to face intact, mastication intact, no dysarthria, soft palate elevates bilaterally upon phonation, gag reflex intact, flexes SCM and trapezius muscles symmetrically with full power, tongue protrudes midline, no atrophy or facial fasiculations present. Absent: no facial asymmetry is present (mild left lower face weakness), hearing is intact symmetrically (decreased hearing bilaterally) Cranial Nerve Exam: facial droop: Left (mild, lower face) Cerebellar examination: Present: no dysmetria - Expanded Neurological Exam Upper motor neuron: Babinski sign: Normal Results - Laboratory Findings CBC and BMP: 03/28/17 03:34 03/28/17 03:34 Abnormal lab findings: Abnormal lab results Plt Count 131 K/mcL (140-400) L 03/28/17 03:34 Nucleated RBCs/100 WBC 0.2 /100 WBC (0) H 03/27/17 05:53 Creatinine 1.44 mg/dL (0.72-1.25) H 03/28/17 03:34 Est GFR ( Amer) 58 (> 60) L 03/28/17 03:34 Est GFR (Non-Af Amer) 48 (> 60) L 03/28/17 03:34 Glucose 242 mg/dL (70-99) H 03/28/17 03:34 POC Glucose 265 (58-89) H 03/28/17 08:08 Hemoglobin A1c 9.4 % (-5.6) H 03/28/17 03:34 Total Bilirubin 2.7 mg/dL (0.2-1.2) H D 03/27/17 05:53 Albumin 3.0 g/dL (3.5-5.0) L D 03/27/17 05:53 Albumin/Globulin Ratio 0.9 (1.1-2.2) L 03/27/17 05:53 HDL Cholesterol 25 mg/dL (40-59) L 03/27/17 05:53 Cholesterol/HDL Ratio 5.0 (0-4.9) H 03/27/17 05:53 Beta-Hydroxybutyric Acd 0.33 mmol/L (0.02-0.27) H 03/26/17 20:23 Ur Specific [place] 1.028 (1.010-1.025) H 03/27/17 00:10 Urine Protein 100 mg/dL (Neg-Trace) H 03/27/17 00:10 Urine Glucose (UA) >=1000 mg/dL (Normal) H 03/27/17 00:10 Urine Microscopic RBC 3-5 per hpf (0-3) H 03/27/17 00:10 Streptococcus sp PCR DETECTED (Not Detect) A 03/26/17 19:29 Group B Strep (PCR) DETECTED (Not Detect) A 03/26/17 19:29 Consult Discharge Plan - Plan Referrals: ColopyGregory DO [Primary Care Provider] -
--- NOTE | 2017-03-28 12:32 | Carotid Imaging Report ---
Carotid Duplex Patient Name:Gabriella Haynes Order Number:[id number] Procedure Date:03/27/2017 Date:1940ge:76 yrs Gender:Male Lt BP:136 / 76 mmHg Rt.BP:136 / 76 mmHgHeart Rate: Location:[facility] Room #: [employer] Refinish Technician:Danette Centeno, [facility] [place] Referring MD:[place] MD language therapist:Gregory Francois DO Reading MD:Gautam Caceres MD Primary Indications:Confusion Risk Factors Yes/No Hypertension Yes Diabetes Yes Hypercholesterolemia Yes Smoker Previous Quit Hx of TIA No Hx of CVA Yes Previous Vascular Surgery No Impressions: Findings: Bilateral carotid system has nonstenotic plaque. Findings Carotid Duplex: Right: The right proximal common carotid artery has a PSV of 91 cm/s and a EDV of 15 cm/s. The right mid common carotid artery has a PSV of 92 cm/s and a EDV of 9 cm/s. The right distal common carotid artery has a PSV of 97 cm/s and a EDV of 16 cm/s. The right bifurcation has a PSV of 72 cm/s and a EDV of 13 cm/s. There is nonstenotic plaque in the right proximal internal carotid artery with a PSV of 61 cm/s and a EDV of 16 cm/s. There is irregular heterogeneous plaque. There is nonstenotic plaque in the right mid internal carotid artery with a PSV of 77 cm/s and a EDV of 21 cm/s. There is irregular heterogeneous plaque. The right distal internal carotid artery has a PSV of 49 cm/s and a EDV of 18 cm/s. There is nonstenotic plaque in the right eca with a PSV of 149 cm/s and a EDV of 3 cm/s. There is irregular heterogeneous plaque. The right vertebral artery has a PSV of 83 cm/s and a EDV of 22 cm/s. Left: The left proximal common carotid artery has a PSV of 94 cm/s and a EDV of 16 cm/s. The left mid common carotid artery has a PSV of 88 cm/s and a EDV of 15 cm/s. The left distal common carotid artery has a PSV of 90 cm/s and a EDV of 17 cm/s. There is nonstenotic plaque in the left bifurcation with a PSV of 87 cm/s and a EDV of 12 cm/s. There is irregular heterogeneous plaque. The left proximal internal carotid artery has a PSV of 108 cm/s and a EDV of 24 cm/s. There is nonstenotic plaque in the left mid internal carotid artery with a PSV of 91 cm/s and a EDV of 24 cm/s. There is irregular heterogeneous plaque. There is nonstenotic plaque in the left distal internal carotid artery with a PSV of 95 cm/s and a EDV of 25 cm/s. There is irregular heterogeneous plaque. There is nonstenotic plaque in the left eca with a PSV of 141 cm/s and a EDV of 2 cm/s. There is irregular heterogeneous plaque. The left vertebral artery has a PSV of 45 cm/s and a EDV of 1 cm/s. LEFT MID/DISTAL ICA DIVING VESSEL. TDS D/T PT BODY HABITUS. DEEP VESSELS. Prior Study: No prior study available for comparison. Carotid Results Right PSV EDV Assessment Proximal CCA 91 15 Normal Mid CCA 92 9 Normal Distal CCA 97 16 Normal Bifurcation 72 13 Normal Proximal ICA 61 16 Non Stenotic Plaque Mid ICA 77 21 Non Stenotic Plaque Distal ICA 49 18 Normal ECA 149 3 Non Stenotic Plaque Vertebral Artery 83 22 Normal Left PSV EDV Assessment Proximal CCA 94 16 Normal Mid CCA 88 15 Normal Distal CCA 90 17 Normal Bifurcation 87 12 Non Stenotic Plaque Proximal ICA 108 24 Normal Mid ICA 91 24 Non Stenotic Plaque Distal ICA 95 25 Non Stenotic Plaque ECA 141 2 Non Stenotic Plaque Vertebral Artery 45 1 Normal Ratio's Right ICA/CCA Ratio: 0.80 ICA/CCA Values: 77/97 Left ICA/CCA Ratio: 1.10 ICA/CCA Values: 108/94 Updated by Gautam Caceres MD on 03/28/2017 12:25:59 PM electronically signed on 03/28/2017 12:26:12 PM with status of Final
[2017-03-28] MEDS: Acetaminophen 325 MG TABLET PO PRN (15:06)
--- NOTE | 2017-03-28 15:13 | Internal Med Progress Note ---
Date of Encounter: 03/28/17 Time of Encounter: 10:30 - Assessment and plan (1) Altered mental status Current Visit: Yes Status: Resolved Assessment and plan: Patient has been alert and oriented 3 throughout this admission thus far. He does have mild expressive aphasia and word searching at times however his states this is consistent with his baseline from a prior CVA. Chest x-ray negative. Head CT negative. Urinalysis negative for infection and revealing proteinuria and glucosuria. Tox screen negative. Echocardiogram with a normal EF. Brain MRI negative for acute processes. Head and neck MRA also unremarkable. Cannot do an EEG on the weekends, he can follow up outpatient. Neurology on board, recommendation to add baby aspirin and low-dose statin to the patient's regimen. He has been cleared for outpatient EEG and outpatient follow-up per neurology. Shaking episode with slurred speech could be more consistent with his bacteremia than with a possible seizure or episode of hypoglycemia. Possible discharge tomorrow pending clinical outcomes and repeat blood culture results. ITS Impressions Chest X-Ray 03/26/17 18:54 IMPRESSION: No acute cardiopulmonary disease is appreciated. D/ / Martin Bo MD / Martin Bo MD Interpreting Provider: Martin Bo MD Head CT 03/26/17 19:26 IMPRESSION: No acute intracranial abnormality. If acute cerebral infarct is a clinical concern, an MRI is a more sensitive study. D/ / Hoda Morrison Cha, MD / Hoda Morrison Cha, MD Interpreting Provider: Hoda Morrison Cha, MD Brain MRI 03/27/17 09:55 IMPRESSION: 1. No acute infarct or acute intracranial process identified. 2. Diffuse cerebral volume loss and severe chronic small vessel ischemic changes. D/ / 03/27/2017 13:27:19 Tommy Thompson MD / james Interpreting Provider: Tommy Thompson MD Head MRA 03/27/17 09:55 IMPRESSION: 1. 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 2. Otherwise, unremarkable MRA of the neck. 3. Unremarkable MRA of the head. D/ / Petey Murillo MD / Petey Murillo MD Interpreting Provider: Petey Murillo MD Neck MRA 03/27/17 10:05 IMPRESSION: 1. 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 2. Otherwise, unremarkable MRA of the neck. 3. Unremarkable MRA of the head. D/ / Petey Murillo MD / Petey Murillo MD Interpreting Provider: Petey Murillo MD Qualifiers: Altered mental status type: disorientation Qualified Code(s): R41.0 - Disorientation, unspecified (2) Cellulitis Current Visit: Yes Status: Acute Assessment and plan: Mild cellulitis noted to right lower extremity. Erythema present although lessened today. No edema. Stemming from diabetic foot ulcer status post debridement approximately 3 weeks ago. Blood cultures +1 out of 2 for group B strep. Continue cefazolin and repeat cultures were drawn today and are pending. No signs of sepsis. Blood pressure and heart rate are stable. Mild leukocytosis noted, resolved. Afebrile; Tmax thus far 99.9F. His renal functioning is stable. Patient stating he was upset that his foot became infected after his barber shop manager had "cleaned it out." Importance of better control over his glucoses was covered with the patient. A1C 9.4%. ITS Impressions Chest X-Ray 03/26/17 18:54 IMPRESSION: No acute cardiopulmonary disease is appreciated. D/ / Martin Bo MD / Martin Bo MD Interpreting Provider: Martin Bo MD Head CT 03/26/17 19:26 IMPRESSION: No acute intracranial abnormality. If acute cerebral infarct is a clinical concern, an MRI is a more sensitive study. D/ / Hoda Morrison Cha, MD / Hoda Morrison Cha, MD Interpreting Provider: Hoda Morrison Cha, MD Brain MRI 03/27/17 09:55 IMPRESSION: 1. No acute infarct or acute intracranial process identified. 2. Diffuse cerebral volume loss and severe chronic small vessel ischemic changes. D/ / 03/27/2017 13:27:19 Tommy Thompson MD / james Interpreting Provider: Tommy Thompson MD Head MRA 03/27/17 09:55 IMPRESSION: 1. 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 2. Otherwise, unremarkable MRA of the neck. 3. Unremarkable MRA of the head. D/ / Petey Murillo MD / Petey Murillo MD Interpreting Provider: Petey Murillo MD Neck MRA 03/27/17 10:05 IMPRESSION: 1. 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 2. Otherwise, unremarkable MRA of the neck. 3. Unremarkable MRA of the head. D/ / Petey Murillo MD / Petey Murillo MD Interpreting Provider: Petey Murillo MD (3) Diabetic foot ulcer Current Visit: Yes Status: Chronic Assessment and plan: Status post debridement per his podiatry doctor in [place] [address] Gill. No drainage, no culture indicated. Area is improving. Continue to enrollment counselor patient on tighter glycemic control. He is stated that he would rather follow-up with [facility] podiatry team than with his regular barber shop manager outpatient. (4) Positive blood culture Current Visit: Yes Status: Acute Assessment and plan: One of 2 blood cultures positive for group B strep. Repeated today, will trend. (5) Transient neurologic deficit Current Visit: Yes Status: Resolved (6) Diabetes Current Visit: Yes Status: Chronic Assessment and plan: Uncontrolled with an A1c of 9.4%. Sliding scale was increased and his basal dosing was resumed at a lower dose yesterday. He has a lengthy history of noncompliance and readily admits dietary indiscretions and not checking his glucoses very often. Continue to educate and monitor. 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 (9) DVT prophylaxis Current Visit: Yes Status: Acute Assessment and plan: Subcutaneous heparin (10) CKD (chronic kidney disease) stage 3, GFR 30-59 ml/min Current Visit: Yes Status: Chronic Assessment and plan: Stable, consistent with his baseline, will trend. - Subjective Interval history: Patient seen and examined. On examination, patient sitting upright in bed watching television. Patient currently complains of burning to his right pinky toe states the pain has improved. He states he is eating well and overall feels much better. - Constitutional Vitals: Temp Pulse Resp BP Pulse Ox 98.2 F 72 16 130/76 95 03/28/17 11:36 03/28/17 11:36 03/28/17 11:36 03/28/17 11:36 03/28/17 11:36 General appearance: Present: A&O X 3, pleasant, no acute distress, answers questions appropriately - Head Head exam: Present: atraumatic, normocephalic - Eye Eye exam: Present: PERRL, conjuntiva pink, sclera anicteric Pupils: Present: PERRL - Neck Neck exam general surgery: Present: supple, trachea midline. Absent: lymphadenopathy - Respiratory Respiratory exam: Present: CTAB. Absent: accessory muscle use, rales, respiratory distress, rhonchi, wheezes - Cardiovascular Cardiovascular exam: Present: RRR, +S1, +S2. Absent: diastolic murmur, gallop, rubs, systolic murmur - GI/Abdominal GI/Abdominal exam: Present: normal bowel sounds, soft, no peritoneal signs. Absent: distended, tenderness - Extremities Exam Extremities exam: Present: warm, radial pulses palpable and symetrical. Absent : calf tenderness, cyanotic, pedal edema - Expanded Lower Extremities Exam Lower Leg exam: Present: erythema (Improving). Absent: swelling, tenderness Neuro vascular tendon exam: Present: decreased fine/light touch. Absent: abnormal cap refill - Neurological Exam Neurological exam: Present: alert, CN II-XII intact, oriented X3, no focal deficits, strengths equal and symetr throughout. Absent: pronater drift, facial droop, speech deficit - Skin Skin exam: Present: dry, intact, normal color, warm Internal Medicine: Result - Labs CBC & Chem 7: 03/28/17 03:34 03/28/17 03:34 Labs: Short CBC 03/28/17 Range/Units 03:34 WBC 7.1 (4.3-11.1) K/mcL Hgb 14.2 (12.9-16.9) g/dL Hct 42.6 (37.5-50.1) % Plt Count 131 L (140-400) K/mcL Neutrophils # 4.8 (1.6-8.9) K/mcL BMP 03/28/17 03:34 Sodium 136 Potassium 4.1 Chloride 104 Carbon Dioxide 25 BUN 23 Creatinine 1.44 H Glucose 242 H Calcium 8.8 - ABG Interpretation ABG results: PT/INR, D-dimer PT 11.9 Seconds (9.4-12.1) 03/26/17 19:15 Consult Discharge Plan - Plan Referrals: Gregory Francois DO [Primary Care Provider] -
--- NOTE | 2017-03-28 17:54 | Electrocardiograph Report ---
[place] [id number] Test Date: 2017-03-26 Pat Name: Gabriella Haynes Department: 105 Room: 3B Gender: M Child Psychologist: LARRY : 1940 Requested By: Reynold Robles Order Number: [id number] Reading MD: Nikki Montejo Measurements Intervals Mallory Rate: 100 P: 32 [place]: 138 QRS: -6 QRSD: 138 T: 7 QT: 350 QTc: 407 Interpretive Statements SINUS TACHYCARDIA RIGHT BUNDLE BRANCH BLOCK Electronically Signed On 03-28-2017 17:52:50 EDT by Nikki Montejo
[2017-03-29 04:03] LABS: BUN/Creatinine Ratio 16 (6-26); Blood Urea Nitrogen 21 mg/dL (8-26); Calcium 8.9 mg/dL (8.6-10.8); Carbon Dioxide 27 mEq/L (19-29); Chloride 103 mEq/L (98-109); Glucose 230 mg/dL (70-99); Osmolality,Calculated 290 (280-300); Potassium 4.1 mEq/L (3.5-4.5); Sodium 135 mEq/L (136-145); eGFR For African Americans > 60 (> 60); eGFR For Non-African Americans 51 (> 60)
[2017-03-29] MEDS: *HR* Heparin 5,000 UNIT/ML VIAL SQ SCH (05:43)
[2017-03-29] MEDS: ceFAZolin 1,000 MG in D5% in Water (Mini-Bag+) 100 ML IVPB SCH (08:25)
[2017-03-29] MEDS: Aspirin Enteric Coated 81 MG Tablet PO SCH (08:26)
[2017-03-29] MEDS: Insulin DETEMIR 100 UNIT/ML X5UNITS SQ SCH (08:26)
[2017-03-29] MEDS: Insulin LISPRO 300 UNITS/3 ML VIAL SQ SCH ×2 (08:27→12:14)
[2017-03-29] MEDS ORDERED: levoFLOXacin 750 MG TABLET PO SCH (09:00)
[2017-03-29 11:52] VITALS: BP 161/84
--- NOTE | 2017-03-29 14:04 | Discharge Summary ---
Date of Encounter: 03/29/17 Time of Encounter: 10:30 - Discharge Diagnosis (1) Altered mental status Priority: Primary Status: Resolved Comments: Patient has been alert and oriented 3 throughout this admission. He does have mild expressive aphasia and word searching at times however his states this is consistent with his baseline from a prior CVA. Chest x-ray negative. Head CT negative. Urinalysis negative for infection and revealing proteinuria and glucosuria. Tox screen negative. Echocardiogram with a normal EF. Brain MRI negative for acute processes. Head and neck MRA also unremarkable. Cannot do an EEG on the weekends, he can follow up outpatient. Neurology on board, recommendation to add baby aspirin and low-dose statin to the patient's regimen. He has been cleared for outpatient EEG and outpatient follow-up per neurology. Shaking episode with slurred speech could be more consistent with his bacteremia than with a possible seizure or episode of hypoglycemia. Seen and evaluated by occupational and physical therapy recommended home health Qualifiers: Altered mental status type: disorientation Qualified Code(s): R41.0 - Disorientation, unspecified (2) Cellulitis Priority: Primary Status: Acute Comments: Mild cellulitis noted to right lower extremity that essentially resolved on day of discharge. Treated with cefazolin while admitted. Blood culture positive for group B strep, sending home on levofloxacin. Resistant to clindamycin, erythromycin, and azithromycin. (3) Diabetic foot ulcer Priority: Secondary Status: Chronic Comments: Patient initially stated he wanted to transition over to Dr. Augustin but now states he would rather stay with Dr. Gill at [place] for his podiatry needs. (4) Positive blood culture Priority: Primary Status: Resolved (5) Transient neurologic deficit Priority: Primary Status: Resolved (6) Diabetes Priority: Secondary Status: Chronic Comments: Uncontrolled with an A1c of 9.4%. Sliding scale was increased and his basal dosing was resumed at a lower dose while admitted. He has a lengthy history of noncompliance and readily admits dietary indiscretions and not checking his glucoses very often. Follow-up outpatient. 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 (9) DVT prophylaxis Priority: Primary Status: Acute Comments: Subcutaneous heparin while admitted (10) CKD (chronic kidney disease) stage 3, GFR 30-59 ml/min Priority: Secondary Status: Chronic Comments: Remained stable throughout this admission. Follow-up outpatient. - Discharge Medications Prescriptions: Aspirin Enteric Coated [Aspirin EC] 81 mg PO DAILY #30 tablet. Atorvastatin [Lipitor] 10 mg PO HS #30 tablet Insulin LISPRO [Humalog Kwikpen U-100] 0 unit SQ TIDAC #1 insuln.pen Levofloxacin 750 mg PO Q48H #7 tablet Home Medications: Acetaminophen [Tylenol] 500 mg PO Q6HR PRN 03/26/17 [History] Colon Health 1 tab PO DAILY 03/26/17 [History] Diltiazem [Cardizem] 30 mg PO QID 03/26/17 [History] Ibuprofen [Advil] 200 mg PO Q6H PRN 03/26/17 [History] Insulin DETEMIR [Levemir Flextouch] 50 - 60 units SQ BID 03/26/17 [History] Levothyroxine Sodium 75 mcg PO 0630 03/26/17 [History] Metoprolol [Lopressor] 25 mg PO BID 03/26/17 [History] Omeprazole [PriLOSEC] 20 mg PO DAILY 03/26/17 [History] Promethazine [Phenergan] 25 mg PO Q6HR PRN 03/26/17 [History] Aspirin Enteric Coated [Aspirin EC] 81 mg PO DAILY #30 tablet. 03/29/17 [Rx] Atorvastatin [Lipitor] 10 mg PO HS #30 tablet 03/29/17 [Rx] Insulin LISPRO [Humalog Kwikpen U-100] 0 unit SQ TIDAC #1 insuln.pen 03/29/17 [ Rx] Levofloxacin 750 mg PO Q48H #7 tablet 03/29/17 [Rx] Allergies/Adverse Reactions: Allergies No Known Allergies Allergy (Verified 03/26/17 21:42) Procedures/tests Complete & Pending: Procedures Performed prior 72 hours Category Date Time Status MR angio head wo con [MR] Routine MRI 03/27/17 09:55 Completed MR angio neck wo/w con [MR] Routine MRI 03/27/17 10:05 Completed MR head/brain wo con [MR] Stat MRI 03/27/17 09:55 Completed EV carotid duplex imaging BI Routine Y 03/27/17 12:00 Completed EV echocardiogram Routine Y 03/27/17 12:00 Completed Date of admission: 03/26/17 22:12 Primary care physician: Gregory Francois Consults: 03/26/17 23:51 Consult to Neurology [CONS] Routine Consulting Provider: Neurology [facility] Reason for Consult: Confusion Call Completed: No 03/29/17 10:10 Consult to Occupational Therapy [CONS] Routine Comment: Evaluate, develop and implement POC Reason for Consult: evaluate Consult to Physical Therapy [CONS] Routine Comment: Evaluate, develop and implement POC Reason for Consult: evaluate 03/29/17 11:54 Consult to Interpret Exam [CONS] Routine Consulting Provider: Jose Carlos Serrano Consult to Interpret Exam: Interpret EEG Discharging clinician: Kayla Jackson Anticipated date of discharge: 03/29/17 (with ) - Patient Status Disposition: Home Health Service Condition: Good Functional capacity at discharge: independent ambulation Overall status at discharge: patient is progressing back to baseline - Discharge Instructions Follow Up With: Gregory Francois DO [Primary Care Provider] - Louis Shaw MD [Non-Partnered Physician] - Neu[facility] [Provider Group] Additional Instructions: Follow-up with primary care provider within one to 2 weeks, follow-up with loss control consultant as needed, follow-up with neurology in 2 weeks - Diet and Activity Activity: increase activity as tolerated Diet: diabetic diet, low fat, low cholesterol, low salt diet Hospital course: Mr. Haynes is a 76 year old male past medical history of uncontrolled diabetes, hypertension, history of CVA with mild expressive aphasia, hypothyroidism, chronic kidney disease stage III. Patient presented to the emergency department chief complaint confusion and hand shaking. Patient stating on the afternoon of presentation that his hands were shaking and he could not speak clearly severely EMS was called. Initial thought per EMS was that the patient was hypoglycemic and they gave him glucose but they did not check his glucose levels prior to giving this medication. When he got to the emergency department, he was alert and oriented 3 and able to answer all questions appropriately. Glucose level was elevated upon presentation. While in the emergency room, patient had another episode of confusion and slurred speech that lasted several minutes and improved spontaneously. Patient was amnesic to this event. Workup in the emergency department revealing hyperglycemia but was otherwise unremarkable. Chest x-ray negative. Head CT negative for acute processes. Patient was admitted to the hospitalist service for further evaluation and management. Brain MRI negative for acute processes. Head and neck MRAs unremarkable. Echocardiogram unremarkable with a normal EF. Urinalysis negative for infection and revealing proteinuria and glucosuria. Tox screen negative. Neurology was brought on board with the initial recommendation to perform an EEG however this was not possible on the weekends. Neurology recommended adding a baby aspirin and a low-dose statin to the patient's regimen and cleared him for an outpatient EEG and outpatient follow-up. Patient had no further shaking or altered mental status during his 2 night admission. During this admission, his right lower extremity with cellulitic resulting from a diabetic foot ulcer of his right foot. His loss control consultant in [facility] debrided this area 3 weeks prior to presentation the patient had erythema streaking up his right lower leg to his knee. He was started on cefazolin. Initial blood cultures 1/2 were positive for group B strep. He did not exhibit signs of sepsis. His mild leukocytosis resolved. He remained afebrile with a maximum temperature of 99.9 while admitted. Renal functioning remained stable. He remained alert and oriented 3 during this admission. He would have times where he would have word searching and mild expressive aphasia but his stated this was normal for him. Preliminary repeat blood cultures were both negative on day of discharge. Blood culture sensitivity revealing resistances to azithromycin, clindamycin, erythromycin. Sensitive to levofloxacin which the patient was sent home on renally dosed. Patient's glucose was difficult to control, A1c 9.4%. His sliding scale at home was increased as was his basal dosing. He has a lengthy history of dietary indiscretions and states that he does not check his glucose very often. Likely cause of patient's shaking episodes with slurred speech could be more consistent with bacteremia than with possible seizures, stroke, or hypoglycemia. CVA ruled out. After lying in bed for a couple days due to his right lower extremity cellulitis, patient became slightly weaker so he was evaluated by occupational and physical therapy both of whom recommended home health services. He was discharged home with home health services in stable condition with close outpatient follow-up recommended. He initially requested to come to [facility]'s podiatry but upon discharge, he stated he would rather go back to his regular loss control consultant in [place]. ITS Impressions Chest X-Ray 03/26/17 18:54 IMPRESSION: No acute cardiopulmonary disease is appreciated. D/ / Martin Bo MD / Martin Bo MD Interpreting Provider: Matrin Bo MD Head CT 03/26/17 19:26 IMPRESSION: No acute intracranial abnormality. If acute cerebral infarct is a clinical concern, an MRI is a more sensitive study. D/ / Hoda Morrison Cha, MD / Hoda Morrison Cha, MD Interpreting Provider: Hoda Morrison Cha, MD Brain MRI 03/27/17 09:55 IMPRESSION: 1. No acute infarct or acute intracranial process identified. 2. Diffuse cerebral volume loss and severe chronic small vessel ischemic changes. D/ / 03/27/2017 13:27:19 Tommy Thompson MD / james Interpreting Provider: Tommy Thompson MD Head MRA 03/27/17 09:55 IMPRESSION: 1. 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 2. Otherwise, unremarkable MRA of the neck. 3. Unremarkable MRA of the head. D/ / Petey Murillo MD / Petey Murillo MD Interpreting Provider: Petey Murillo MD Neck MRA 03/27/17 10:05 IMPRESSION: 1. 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 2. Otherwise, unremarkable MRA of the neck. 3. Unremarkable MRA of the head. D/ / Petey Murillo MD / Petey Murillo MD Interpreting Provider: Petey Murillo MD Foot X-Ray 03/28/17 15:23 IMPRESSION: 1. No acute osseous abnormality. No radiographic evidence of osteomyelitis. D/ / Mj Rivera MD / Mj Rivera MD Interpreting Provider: Mj Rivera MD Carotid duplex impressions: Bilateral carotid systems of nonstenotic plaque. Echocardiogram impressions: Technically challenging study with suboptimal windows. Grossly normal LVEF. Not all myocardial segments are well visualized. RV is not well evaluated. No significant valvular dysfunction. No pulmonary hypertension. - Time Spent with Patient Total time spent providing and/or coordinating discharge services: - Constitutional Vitals: Temp Pulse Resp BP Pulse Ox 97.3 F L 67 18 161/84 98 03/29/17 11:51 03/29/17 11:51 03/29/17 11:51 03/29/17 11:51 03/29/17 11:51 General appearance: Present: A&O X 3, pleasant, no acute distress, answers questions appropriately - Head Head exam: Present: atraumatic, normocephalic - Eye Eye exam: Present: PERRL, conjuntiva pink, sclera anicteric Pupils: Present: PERRL - Neck Neck exam general surgery: Present: supple, trachea midline. Absent: lymphadenopathy - Respiratory Respiratory exam: Present: CTAB. Absent: accessory muscle use, rales, respiratory distress, rhonchi, wheezes - Cardiovascular Cardiovascular exam: Present: RRR, +S1, +S2. Absent: diastolic murmur, gallop, rubs, systolic murmur - GI/Abdominal GI/Abdominal exam: Present: normal bowel sounds, soft, no peritoneal signs. Absent: distended, tenderness - Extremities Exam Extremities exam: Present: warm, radial pulses palpable and symetrical. Absent : calf tenderness, cyanotic, pedal edema - Expanded Lower Extremities Exam Lower Leg exam: Present: erythema Foot/Toe exam: Present: erythema Neuro vascular tendon exam: Present: decreased fine/light touch. Absent: pulse deficit - Neurological Exam Neurological exam: Present: alert, CN II-XII intact, oriented X3, no focal deficits, strengths equal and symetr throughout. Absent: pronater drift, facial droop, speech deficit - Skin Skin exam: Present: dry, intact, normal color, warm
--- NOTE | 2017-03-29 14:38 | Physician Discharge Referral ---
Home Health/Hosp Referral Info Transfer to: Home Health Attending Provider: Elke Jackson CNP Provider in Charge Post Discharge: PCP - Diagnosis (1) Altered mental status Priority: Primary Status: Resolved (2) Cellulitis Priority: Primary Status: Acute (3) Diabetic foot ulcer Priority: Secondary Status: Chronic (4) Positive blood culture Priority: Primary Status: Resolved (5) Transient neurologic deficit Priority: Primary Status: Resolved (6) Diabetes Priority: Secondary Status: Chronic (7) Hypothyroidism Priority: Secondary Status: Chronic (8) History of CVA (cerebrovascular accident) Priority: Secondary Status: Chronic (9) DVT prophylaxis Priority: Primary Status: Acute (10) CKD (chronic kidney disease) stage 3, GFR 30-59 ml/min Priority: Secondary Status: Chronic - Respiratory Orders Smoking Cessation: Smoking cessation has been advised. For more information, call the [place] Tobacco Quit Line at 0-718-UCOY-NOW. - Diet/Nutrition Diet/Nutrition Orders: No Added Salt (RASHAD), No Concentrated Sweets - Activity Activity Orders: Ambulate (per PT) - Services Needed Following services are medically necessary services: Nursing, Home Health Aide, Physical Therapy, Occupational Therapy, Speech Therapy - Transfer Medications Prescriptions: Aspirin Enteric Coated [Aspirin EC] 81 mg PO DAILY #30 tablet. Atorvastatin [Lipitor] 10 mg PO HS #30 tablet Insulin LISPRO [Humalog Kwikpen U-100] 0 unit SQ TIDAC #1 insuln.pen Levofloxacin 750 mg PO Q48H #7 tablet Home Medications: Acetaminophen [Tylenol] 500 mg PO Q6HR PRN 03/26/17 [History] Colon Health 1 tab PO DAILY 03/26/17 [History] Diltiazem [Cardizem] 30 mg PO QID 03/26/17 [History] Ibuprofen [Advil] 200 mg PO Q6H PRN 03/26/17 [History] Insulin DETEMIR [Levemir Flextouch] 50 - 60 units SQ BID 03/26/17 [History] Levothyroxine Sodium 75 mcg PO 0630 03/26/17 [History] Metoprolol [Lopressor] 25 mg PO BID 03/26/17 [History] Omeprazole [PriLOSEC] 20 mg PO DAILY 03/26/17 [History] Promethazine [Phenergan] 25 mg PO Q6HR PRN 03/26/17 [History] Aspirin Enteric Coated [Aspirin EC] 81 mg PO DAILY #30 tablet. 03/29/17 [Rx] Atorvastatin [Lipitor] 10 mg PO HS #30 tablet 03/29/17 [Rx] Insulin LISPRO [Humalog Kwikpen U-100] 0 unit SQ TIDAC #1 insuln.pen 03/29/17 [ Rx] Levofloxacin 750 mg PO Q48H #7 tablet 03/29/17 [Rx] Allergies/Adverse Reactions: Allergies No Known Allergies Allergy (Verified 03/26/17 21:42) Certification: Further, I certify that my clinical findings support that this patient is homebound (i.e. absences from home require considerable and taxing effort and are for medical reasons or hinduism services or infrequently or short duration when for other reasons) because: Homebound Reason: Patient requires assistance of a person or device to safely leave home, Post-surgery restriction and or conditions limit ability to leave home Attestation: My signature below is to certify that this patient is under my care and that I, or nurse practitioner, or a physician's primary teaching assistant working with me, has a face-to -face encounter with this patient.
--- NOTE | 2017-03-30 16:20 | EEG/EMG/Oth Biometrics Report ---
EEG Procedure Report Date of procedure: 03/30/17 EEG Procedure: Routine EEG Procedure Note: This is a report of a 21 channel bipolar and referential montage EEG. The posterior dominant rhythm of 8 Hz moderate voltage alpha frequencies identified symmetrically in the posterior head regions. This rhythm attenuates symmetrically with eye opening. Hyperventilation is not performed in the recording. There is no sleep architecture identified during the study. Photic stimulation is performed and does not produce a driving response. The EKG rhythm strip reveals normal sinus rhythm at 66 bpm. Impressions: This EEG recording is within normal limits. There is no evidence of epileptiform activity identified during the study. Comment: A normal EEG does not preclude a diagnosis of seizure or epilepsy. If the clinical suspicion for seizure activity is high, serial EEGs or perhaps a prolonged recording may increase the yield. Please correlate clinically. The documentation in the history of HPI and plan were at least partially created by [employer] recognition technology by Dr. Serrano. Errors in grammar, wording or other phrases may exist. If errors are found after the documentation signed, they will be addressed individually in the addendum section of this document when appropriate.
== END 2017-03-29 16:46 | disposition home health service (06) ==
LOC: EMEROO 18:43 → 3BNU 18:43
PROVIDERS: ADMIT Internal Medicine; ATTEND Nurse Practitioner Family

== ENCOUNTER 2019-11-18 05:15 | Inpatient (IN) ==
[2019-11-18 06:14] LABS: Basophils # 0.2 K/mcL (0.0-0.2); Basophils % 2.5 %; Eosinophils # 0.4 K/mcL (0.0-0.6); Eosinophils % 6.8 %; Hematocrit 38.5 % (37.5-50.1); Hemoglobin 13.3 g/dL (12.9-16.9); Immature Granulocytes % 1.8 % (0-4); Lymphocytes # 1.2 K/mcL (0.6-4.6); Lymphocytes % 19.8 %; Mean Corpuscular HGB Conc 34.5 g/dL (31.6-35.5); Mean Corpuscular Hemoglobin 31.9 pg (28.0-33.3); Mean Corpuscular Volume 92.3 fL (83.0-100.0); Mean Platelet Volume 9.6 fL (9.4-12.4); Monocytes # 0.4 K/mcL (0.0-1.3); Monocytes % 6.8 %; Neutrophils # 3.8 K/mcL (1.6-8.9); Platelet Count 164 K/mcL (140-400); Red Blood Count 4.17 M/mcL (4.19-5.50); Red Cell Distribution Width 13.5 % (11.5-14.5); Segmented Neutrophils % 62.3 %
[2019-11-18 06:26] LABS: Prothrombin Time 11.9 Seconds (9.4-12.1)
[2019-11-18] MEDS ORDERED: Furosemide 40 MG/4 ML VIAL IVP ONE (06:34)
[2019-11-18 06:35] LABS: Calcium 9.1 mg/dL (8.6-10.3); Potassium 4.6 mEq/L (3.5-5.1)
[2019-11-18 06:39] LABS: Troponin I 1.56 ng/mL (< 0.04)
[2019-11-18] MEDS ORDERED: Aspirin 81 MG TAB.CHEW PO STA (07:26)
[2019-11-18] MEDS: Heparin 25,000 UNIT/250 ML D5W 25,000 UNIT/250 ML IV.SOLN IVC SCH (07:47)
[2019-11-18] MEDS ORDERED: Aspirin 81 MG TAB.CHEW PO SCH (09:00)
[2019-11-18] MEDS ORDERED: Albumin 25% 25gram/100mL 25 GM/100 ML IV.SOLN IVPB ONE (09:15)
[2019-11-18] MEDS: Aspirin Enteric Coated 81 MG Tablet PO SCH (11:05)
[2019-11-18 12:00] LABS: Bilirubin,Urine Negative (Negative); Blood,Urine Trace (Negative); Clarity,Urine Clear (Clear); Color,Urine Yellow (Yellow); Glucose,Urine (UA) Normal (Normal); Ketones,Urine Negative (Negative); Leukocyte Esterase,Urine Negative (Negative); Nitrite,Urine Negative (Negative); Protein,Urine 100 mg/dL (Neg-Trace); Specific Gravity,Urine 1.011 (1.010-1.025); Urobilinogen,Urine Normal (Normal)
[2019-11-18 12:03] LABS: Bacteria,Urine None Seen per hpf (None-Few); Hyaline Casts,Urine None Seen per lpf (None-Few); RBC,Urine 0-3 per hpf (0-3); Squamous Epithelial Cell,Urine Few per lpf (None-Few); WBC,Urine 0-3 per hpf (0-3)
[2019-11-18 12:44] LABS: Adenovirus Not Detected (Not Detect); Coronavirus 229E Not Detected (Not Detect); Coronavirus HKU1 Not Detected (Not Detect); Coronavirus NL63 Not Detected (Not Detect); Coronavirus OC43 Not Detected (Not Detect); Human Metapneumovirus Not Detected (Not Detect); Human Rhinovirus/Enterovirus Not Detected (Not Detect)
[2019-11-18 12:45] LABS: Bordetella Pertussis Not Detected (Not Detect); Chlamydophila pneumoniae Not Detected (Not Detect); Influenza A Subtype 2009 H1 Not Detected (Not Detect); Influenza B Not Detected (Not Detect); Mycoplasma pneumoniae Not Detected (Not Detect); Parainfluenza Virus 1 Not Detected (Not Detect); Parainfluenza Virus 2 Not Detected (Not Detect); Parainfluenza Virus 3 Not Detected (Not Detect); Parainfluenza Virus 4 Not Detected (Not Detect); Respiratory Syncytial Virus Not Detected (Not Detect)
[2019-11-18] MEDS: Insulin LISPRO 300 UNITS/3 ML VIAL SQ SCH ×2 (12:58→18:48)
[2019-11-18] MEDS ORDERED: Perflutren Lipid Microsphere 1.3 ML in 0.9 % Sodium Chloride 8.7 ML IVP ONE (13:28)
[2019-11-18] MEDS ORDERED: Insulin DETEMIR 100 UNIT/ML X5UNITS SQ SCH (21:00)
[2019-11-19] MEDS: Insulin LISPRO 300 UNITS/3 ML VIAL SQ SCH ×5 (00:23→20:20)
[2019-11-19] MEDS ORDERED: Naloxone 0.4 MG/ML INJ IVP PRN (02:06)
[2019-11-19 02:13] LABS: Chol/HDL Ratio 4.5 (0-4.9)
[2019-11-19 02:26] LABS: Albumin 3.5 g/dL (3.5-5.7); Albumin/Globulin Ratio 1.5 (1.1-2.2); Bilirubin,Total 0.9 mg/dL (0.3-1.0); Calcium 8.3 mg/dL (8.6-10.3); Globulin 2.3 g/dL (2.4-3.5); Potassium 4.1 mEq/L (3.5-5.1); Total Protein 5.8 g/dL (6.4-8.9); Troponin I 1.19 ng/mL (< 0.04)
[2019-11-19 03:34] LABS: Estimated Average Glucose 217 mg/dl
[2019-11-19] MEDS: Heparin 25,000 UNIT/250 ML D5W 25,000 UNIT/250 ML IV.SOLN IVC SCH (05:29)
[2019-11-19] MEDS: Aspirin Enteric Coated 81 MG Tablet PO SCH (09:24)
[2019-11-19] MEDS: *HR* Acetylcysteine 20% 600 MG/3 ML ORAL SYRINGE PO SCH ×2 (14:23→20:20)
[2019-11-19] MEDS: Albumin 25% 25gram/100mL 25 GM/100 ML IV.SOLN IVPB SCH (16:49)
[2019-11-19] MEDS ORDERED: Insulin DETEMIR 100 UNIT/ML X5UNITS SQ SCH (21:00)
[2019-11-20] MEDS: Albumin 25% 25gram/100mL 25 GM/100 ML IV.SOLN IVPB SCH ×2 (00:40→17:35)
[2019-11-20] MEDS: Heparin 25,000 UNIT/250 ML D5W 25,000 UNIT/250 ML IV.SOLN IVC SCH (04:33)
[2019-11-20 07:30] LABS: Hematocrit 34.4 % (37.5-50.1); Mean Corpuscular HGB Conc 34.3 g/dL (31.6-35.5); Mean Corpuscular Hemoglobin 31.3 pg (28.0-33.3); Mean Corpuscular Volume 91.2 fL (83.0-100.0); Mean Platelet Volume 9.6 fL (9.4-12.4); Platelet Count 146 K/mcL (140-400); Red Blood Count 3.77 M/mcL (4.19-5.50); Red Cell Distribution Width 13.2 % (11.5-14.5)
[2019-11-20 07:38] LABS: Potassium 4.2 mEq/L (3.5-5.1)
[2019-11-20 07:48] LABS: Hemoglobin 11.8 g/dL (12.9-16.9)
[2019-11-20] MEDS: Aspirin Enteric Coated 81 MG Tablet PO SCH (09:48)
[2019-11-20] MEDS: Insulin LISPRO 300 UNITS/3 ML VIAL SQ SCH ×4 (09:49→22:15)
[2019-11-20] MEDS: *HR* Acetylcysteine 20% 600 MG/3 ML ORAL SYRINGE PO SCH ×2 (09:49→22:13)
[2019-11-20] MEDS: *HR* Heparin 5,000 UNIT/ML VIAL SQ SCH (17:35)
[2019-11-20] MEDS: Insulin DETEMIR 100 UNIT/ML X5UNITS SQ SCH (22:14)
[2019-11-21 01:59] LABS: Hematocrit 32.1 % (37.5-50.1); Hemoglobin 10.8 g/dL (12.9-16.9); Mean Corpuscular HGB Conc 33.6 g/dL (31.6-35.5); Mean Corpuscular Hemoglobin 31.8 pg (28.0-33.3); Mean Corpuscular Volume 94.4 fL (83.0-100.0); Mean Platelet Volume 9.9 fL (9.4-12.4); Platelet Count 139 K/mcL (140-400); Red Cell Distribution Width 13.2 % (11.5-14.5); White Blood Count 4.5 K/mcL (4.3-11.1)
[2019-11-21] MEDS: Albumin 25% 25gram/100mL 25 GM/100 ML IV.SOLN IVPB SCH ×2 (02:02→18:45)
[2019-11-21 02:17] LABS: Calcium 8.6 mg/dL (8.6-10.3); Potassium 3.9 mEq/L (3.5-5.1)
[2019-11-21] MEDS ORDERED: Saline Nasal Spray 44 ML BOTTLE NS PRN (04:16)
[2019-11-21] MEDS: *HR* Heparin 5,000 UNIT/ML VIAL SQ SCH ×2 (06:56→18:46)
[2019-11-21] MEDS: Insulin LISPRO 300 UNITS/3 ML VIAL SQ SCH ×4 (09:35→21:23)
[2019-11-21] MEDS: Aspirin Enteric Coated 81 MG Tablet PO SCH (09:36)
[2019-11-21] MEDS: *HR* Acetylcysteine 20% 600 MG/3 ML ORAL SYRINGE PO SCH ×2 (14:32→21:22)
[2019-11-21] MEDS: Metoprolol XL (24 HR) Succ 25 MG TAB.ER.24H PO SCH (14:32)
[2019-11-21] MEDS: Insulin DETEMIR 100 UNIT/ML X5UNITS SQ SCH (21:23)
[2019-11-22 02:12] LABS: Hematocrit 36.1 % (37.5-50.1); Mean Corpuscular HGB Conc 33.2 g/dL (31.6-35.5); Mean Corpuscular Hemoglobin 31.8 pg (28.0-33.3); Mean Corpuscular Volume 95.8 fL (83.0-100.0); Mean Platelet Volume 9.7 fL (9.4-12.4); Platelet Count 157 K/mcL (140-400); Red Blood Count 3.77 M/mcL (4.19-5.50); Red Cell Distribution Width 13.2 % (11.5-14.5); White Blood Count 5.3 K/mcL (4.3-11.1)
[2019-11-22 02:34] LABS: Calcium 9.2 mg/dL (8.6-10.3); Magnesium 2.4 mg/dL (1.6-2.6); Potassium 4.1 mEq/L (3.5-5.1)
[2019-11-22] MEDS: Albumin 25% 25gram/100mL 25 GM/100 ML IV.SOLN IVPB SCH (02:50)
[2019-11-22] MEDS: *HR* Heparin 5,000 UNIT/ML VIAL SQ SCH ×2 (06:04→18:14)
[2019-11-22 06:08] LABS: ABG Base Excess -3 mEq/L (-2 to 3); ABG HCO3 21 mEq/L (21-27); ABG Oxygen Saturation 91 % (95-98); ABG PCO2 36 mmHg (35-45); ABG PH 7.38 pH Units (7.32-7.45); ABG PO2 62 mmHg (85-104); ABG TCO2 23 mEq/L (20-26)
[2019-11-22] MEDS: Levalbuterol Neb 1.25 MG/3 ML IH SCH ×5 (07:29→23:58)
[2019-11-22] MEDS: Insulin LISPRO 300 UNITS/3 ML VIAL SQ SCH ×4 (09:10→19:55)
[2019-11-22] MEDS: *HR* Acetylcysteine 20% 600 MG/3 ML ORAL SYRINGE PO SCH ×2 (09:11→19:55)
[2019-11-22] MEDS: Metoprolol XL (24 HR) Succ 25 MG TAB.ER.24H PO SCH (09:11)
[2019-11-22] MEDS: Aspirin Enteric Coated 81 MG Tablet PO SCH (09:11)
[2019-11-22] MEDS: Insulin DETEMIR 100 UNIT/ML X5UNITS SQ SCH (19:55)
[2019-11-23 01:01] LABS: Alpha 2 Globulin (PEP) 0.85 g/dL (0.48-1.05); Beta Globulin (PEP) 0.66 g/dL (0.48-1.10)
[2019-11-23 01:52] LABS: Calcium 8.9 mg/dL (8.6-10.3); Potassium 4.3 mEq/L (3.5-5.1)
[2019-11-23] MEDS: Levalbuterol Neb 1.25 MG/3 ML IH SCH ×5 (03:07→19:50)
[2019-11-23] MEDS: *HR* Heparin 5,000 UNIT/ML VIAL SQ SCH ×2 (06:03→17:23)
[2019-11-23] MEDS: Aspirin Enteric Coated 81 MG Tablet PO SCH (08:54)
[2019-11-23] MEDS: Metoprolol XL (24 HR) Succ 25 MG TAB.ER.24H PO SCH (08:54)
[2019-11-23] MEDS: *HR* Acetylcysteine 20% 600 MG/3 ML ORAL SYRINGE PO SCH ×2 (08:56→22:02)
[2019-11-23] MEDS: Insulin LISPRO 300 UNITS/3 ML VIAL SQ SCH ×4 (08:57→22:02)
[2019-11-23 11:24] LABS: IFE Reflexed NOT DONE
[2019-11-23] MEDS ORDERED: Albumin 25% 25gram/100mL 25 GM/100 ML IV.SOLN IVPB ONE (20:06)
[2019-11-23] MEDS ORDERED: Furosemide 40 MG/4 ML VIAL IVP ONE (21:00)
[2019-11-23] MEDS: Insulin DETEMIR 100 UNIT/ML X5UNITS SQ SCH (22:03)
[2019-11-24] MEDS: Levalbuterol Neb 1.25 MG/3 ML IH SCH ×5 (00:14→16:15)
[2019-11-24 02:32] LABS: Calcium 9.3 mg/dL (8.6-10.3); Potassium 4.3 mEq/L (3.5-5.1)
[2019-11-24] MEDS: *HR* Heparin 5,000 UNIT/ML VIAL SQ SCH ×2 (06:01→17:20)
[2019-11-24 07:10] VITALS: BP 112/78
[2019-11-24] MEDS: Aspirin Enteric Coated 81 MG Tablet PO SCH (09:24)
[2019-11-24] MEDS: Metoprolol XL (24 HR) Succ 25 MG TAB.ER.24H PO SCH (09:24)
[2019-11-24] MEDS: Insulin LISPRO 300 UNITS/3 ML VIAL SQ SCH ×3 (09:25→17:20)
[2019-11-24] MEDS: *HR* Acetylcysteine 20% 600 MG/3 ML ORAL SYRINGE PO SCH (09:25)
== END 2019-11-24 18:58 | disposition home or self-care (01) | DRG 280 ==
LOC: SUATTDRO → CDU 05:15 → EMEROOARM 05:15 → CDU 07:50 → 2NENU 16:24 → SUATTDRO 18:13
PROVIDERS: ADMIT Internal Medicine; ATTEND Internal Medicine